=== PATIENT | female | born 1980 | race Caucasian/White ===

== ENCOUNTER 2020-06-18 07:12 | Outpatient (REF) | payer OTHER, SELFPAY | END 2020-06-18 07:13 | disposition home or self-care (01) | LOC: HO.LAB 07:12 | PROVIDERS: PCP Internal Medicine; Visit Provider Internal Medicine | DX: Z20.828 Contact with and (suspected) exposure to other viral communicable diseases (principal) | CPT/HCPCS: 87635 ==

== ENCOUNTER 2020-11-16 11:32 | Outpatient (REF) | payer OTHER, SELFPAY | END 2020-11-16 11:33 | disposition home or self-care (01) | LOC: HO.LAB 11:32 | PROVIDERS: Visit Provider Internal Medicine | DX: Z20.822 Contact with and (suspected) exposure to COVID-19 (principal) | CPT/HCPCS: 36415; C9803; U0003; U0005 ==

== ENCOUNTER 2022-07-29 14:02 | Emergency (ER) | payer OTHER, SELFPAY ==
[2022-07-29 18:23] VITALS: BP 138/97; PULSE 94; RESP 18; TEMP 37.3; O2SAT 97; BMI 26.9
--- NOTE | 2022-07-29 18:23 | ED_ITS ---
HPI - General Adult General Chief complaint: Upper Respiratory Symptoms <Perla Mark MD - Last Filed: 07/29/22 18:32> Stated complaint: sob <Perla Mark MD - Last Filed: 07/29/22 18:32> Time Seen by Provider: 07/29/22 20:13 <Perla Mark MD - Last Filed: 07/29/22 18:32> Source: patient <PATIENCE Reid - Last Filed: 07/29/22 20:36> Mode of arrival: ambulatory <PATIENCE Reid - Last Filed: 07/29/22 20:36> Limitations: no limitations <PATIENCE Reid Last Filed: 07/29/22 20:36> History of Present Illness HPI narrative: 41-year-old female past pertinent medical history of asthma presents to the emergency department for a 5 day history of chills, fever, and fatigue. Associated symptoms include nausea, diarrhea, sore throat, cough, malaise and vague shortness of breath. Shortness of breath is worse with exertion, better w ith rest tells me it fells like when she has asthma improved by inhaler. Patient describes the cough as dry with no accompanied wheezing. Patient is an asthmatic however says that her asthma has been well controlled throughout this illness. Symptoms originally started on Thursday night, patient originally felt this was a hangover from giving on . Symptoms worsened on Thursday. Patient has taken Tylenol, Marylou-Mcandrews at home, with slight relief of symptoms. Took the COVID home test on Thursday, which was negative. Denies chest pain, wheezing, vomiting, headache, weakness, imbalance, vision changes. Boyfriend influenza + <PATIENCE Reid - Last Filed: 07/29/22 20:36> Related Data Home medications: Home Medications Medication Instructions Recorded Confirmed albuterol sulfate 90 mcg/actuation 2 puff inhalation Q4H PRN wheezing 07/28/22 aerosol inhaler cetirizine 10 mg tablet 10 mg PO DAILY 07/28/22 escitalopram oxalate 10 mg tablet 10 mg PO DAILY 07/28/22 meloxicam 7.5 mg tablet 7.5 mg PO DAILY PRN pain 07/28/22 omeprazole 40 mg capsule,delayed 40 mg PO DAILY 07/28/22 release Previous Rx's Medication Instructions Recorded loperamide 2 mg capsule 2 mg PO QID PRN loose stool #14 07/29/22 caps ondansetron 4 mg disintegrating 4 mg PO Q6H PRN nausea and 07/29/22 tablet vomiting #14 tabs prednisone 20 mg tablet 20 mg PO DAILY 5 days #5 tabs 07/29/22 <Perla Mark MD - Last Filed: 07/29/22 18:32> Allergies/adverse reactions: Allergies Allergy/AdvReac Type Severity Reaction Status Date / Time No Known Allergies Allergy Verified 07/29/22 18:22 <Perla Mark MD - Last Filed: 07/29/22 18:32> Review of Systems Review of Systems: Constitutional : No Weight loss, + Fever, + Chills, + Fatigue, + Malaise ENT/Mouth : + sore throat, + Rhinorrhea, - otalgia Eyes: No Eye Pain, No Swelling, No Redness Cardiovascular : No Chest Pain, + SOB, No Dyspnea on Exertion, No Orthopnea, No Edema, No Palpitations Respiratory : No Cough, No Sputum, No Wheezing Gastrointestinal : + Nausea, No Vomiting, +Diarrhea, No Constipation, No abdominal Pain, No Hematochezia, No Melena Genitourinary : No Dysuria, No Urinary Frequency, No Hematuria, Musculoskeletal : No joint pain, No Myalgias, No Joint Swelling Skin : No Skin Lesions, No rash Neuro : No Weakness, No Numbness, No Dizziness, No Headache Psych : No Anxiety/Panic, No Depression All other systems reviewed and are negative <PATIENCE Reid - Last Filed: 07/29/22 20:36> Yes all other systems are reviewed and are negative <PATIENCE Reid - Last Filed: 07/29/22 20:36> [facility] Past Medical History Attestation statement: The following information was validated with the patient. <PATIENCE Reid - Last Filed: 07/29/22 20:36> Source: old records reviewed and nursing notes reviewed <PATIENCE Reid Last Filed: 07/29/22 20:36> Medical History: Medical History (Updated 07/29/22 @ 20:14 by PATIENCE Reid) LARRY positive Anxiety Asthma Fatigue GERD (gastroesophageal reflux disease) Hypertension Insomnia Polyarthralgia <Perla Mark MD - Last Filed: 07/29/22 18:32> Surgical History: Surgical History (Updated 07/28/22 @ 11:05 by ARCADIO Leon) Hx laparoscopic cholecystectomy S/P breast augmentation <Perla Mark MD - Last Filed: 07/29/22 18:32> Family History Family History: Family History (Updated 05/06/22 @ 11:23 by ARCADIO Leon) Father Hypertension Hyperlipidemia Maternal Grandmother Diabetes Cataract Glaucoma Melanoma Paternal Grandmother Myocardial infarction Family/Other Rheumatoid arthritis Brother Diabetes Glaucoma Mother Fibromyalgia <Perla Mark MD - Last Filed: 07/29/22 18:32> Social History Social History: Social History (Updated 05/06/22 @ 11:19 by ARCADIO Leon) Alcohol intake: current Alcohol intake frequency: holidays/special occasions only Patient Tobacco Use Status: Never used Tobacco Advance Directives: No <Perla Mark MD - Last Filed: 07/29/22 18:32> Physical Exam ED Vital Signs: Vital Signs - 24 hr 07/29/22 18:23 Temperature 99.1 F Pulse Rate 94 Respiratory Rate 18 Blood Pressure 138/97 H Pulse Oximetry 97 Oxygen Delivery Method Room Air BMI result Body Mass Index 26.9 <Perla Mark MD - Last Filed: 07/29/22 18:32> Vital Signs - 24 hr 07/29/22 18:23 Temperature 99.1 F Pulse Rate 94 Respiratory Rate 18 Blood Pressure 138/97 H Pulse Oximetry 97 Oxygen Delivery Method Room Air BMI result Body Mass Index 26.9 vss <PATIENCE Reid - Last Filed: 07/29/22 20:36> Appearance: Alert.? Oriented X3.? No acute distress.? Head: Normocephalic, atraumatic, no step-offs or deformities Eyes: Pupils equal, round and reactive to light.? Neck: Normal inspection.? Neck supple.? CVS: Normal heart rate and rhythm.? Pulses normal.? Respiratory: No respiratory distress.? Breath sounds normal.? Abdomen: Soft and nontender.? Skin: Skin warm and dry.? Normal skin color.? Normal skin turgor.? Extremities: No lower extremity edema.? No calf ttp. 5/5 strength to bilateral upper and lower extremities. Homans sign negative bilaterally. Back: No midline tenderness, no C-spine tenderness, full range of motion, no CVA tenderness bilaterally Neuro: Oriented X 3.? No motor deficit.? No sensory deficit. CN 2-12 intact <PATIENCE Reid - Last Filed: 07/29/22 20:36> Course Course Course Narrative: 41F worsening SOB since Thursday, associated with fever, chills, nausea, diarrhea, no urinary symptoms. LMP: end of May. VITAL SIGNS: Reviewed. GENERAL: Well developed, well nourished, in no acute distress. HEAD: Normocephalic/atraumatic EYES: PERRLA, EOMI EARS: Ext canals without abnormality, TMs non-bulging and non-erythematous NOSE: Nares patent bilateral OROPHARYNX: no oral lesions noted, posterior pharynx clear and non-erythematous without noted tonsillar enlargement/erythema/exudates NECK: Supple, no adenopathy LUNGS: Normal breath sounds. No adventitious sounds or accessory muscle use. SpO2<97> CARDIOVASCULAR: Regular rate and rhythm without noted murmurs ABDOMEN: Soft, non-tender, non-distended with bowel sounds. MUSCULOSKELETAL: No tenderness, deformities, or effusions noted on gross inspection. EXTREMITIES: No cyanosis, clubbing or edema. SKIN: Inspection of the skin reveals no rashes NEUROLOGIC: Alert and oriented x 4. Strength and sensation to light touch were grossly intact x 4. <Perla Mark MD - Last Filed: 07/29/22 18:32> Reevaluation(s) Reevaluation #1: influenza +, discusseed supportive measure. Will dc on low dose pred, loperamide and zofran for sx. Not a tamiflu candidate sx > 48 hours. educated on worisome signs and sx and when to return. Verbalizes understanding stable for dc. At time of DC VSS 97% on RA sp ambulation. Non toxic appearing, <PATIENCE Reid - Last Filed: 07/29/22 20:36> Time: 20:36 <PATIENCE Reid - Last Filed: 07/29/22 20:36> Medications Administered Discontinued Medications Generic Name Dose Route Start Last Admin Trade Name Freq PRN Reason Stop Dose Admin Albuterol Sulfate 2 puff 07/29/22 18:29 07/29/22 18:33 Albuterol Sulfate 90 Mcg 8 Gm Inhaler INHALE 07/29/22 18:30 2 puff ONCE ONE Administration Prednisone 50 mg 07/29/22 18:25 07/29/22 18:33 Prednisone 10 Mg Tablet PO 07/29/22 18:26 50 mg ONCE ONE Administration <Perla Mark MD - Last Filed: 07/29/22 18:32> Medications Administered Discontinued Medications Generic Name Dose Route Start Last Admin Trade Name Freq PRN Reason Stop Dose Admin Albuterol Sulfate 2 puff 07/29/22 18:29 07/29/22 18:33 Albuterol Sulfate 90 Mcg 8 Gm Inhaler INHALE 07/29/22 18:30 2 puff ONCE ONE Administration Prednisone 50 mg 07/29/22 18:25 07/29/22 18:33 Prednisone 10 Mg Tablet PO 07/29/22 18:26 50 mg ONCE ONE Administration <PATIENCE Reid - Last Filed: 07/29/22 20:36> Medical Decision Making [facility] Narrative Medical decision making narrative: 2023 41-year-old female past medical history for asthma presents today with 5 day history of flu like sx. Boyfrend flu + PE unremarkable. Carlito's sign negative bilaterally. Lungs to clear to a uscultation bilaterally. Likely flu vs. COVID vs. RSV. Unlikely PE , PNA, peritonsillar abscess, epiglottitis. Clinical suspicion is low for PE with negative Carlito's sign bilaterally, no need for D-dimer. Suspicion for PNA is low, lungs clear bilaterally, no need for CXR at this time. Plan at this time is swabs RSV/flu/COVID swabs. <PATIENCE Reid - Last Filed: 07/29/22 20:36> Medical Records Medical records reviewed: Yes I reviewed the patient's medical records. <PATIENCE Reid - Last Filed: 07/29/22 20:36> Lab Data Lab results reviewed: Yes I reviewed the patient's lab results. <PATIENCE Reid Last Filed: 07/29/22 20:36> Labs: Lab Results 07/29/22 Range/Units 18:35 Influenza Type A (PCR) POSITIVE A (Negative) Influenza Type B (PCR) NEGATIVE (Negative) RSV RNA Qual (PCR) NEGATIVE (Negative) SARS-CoV-2 RNA (RT-PCR) NEGATIVE (Negative) <Perla Mark MD - Last Filed: 07/29/22 18:32> Lab Results 07/29/22 Range/Units 18:35 Influenza Type A (PCR) POSITIVE A (Negative) Influenza Type B (PCR) NEGATIVE (Negative) RSV RNA Qual (PCR) NEGATIVE (Negative) SARS-CoV-2 RNA (RT-PCR) NEGATIVE (Negative) <PATIENCE Reid - Last Filed: 07/29/22 20:36> Critical Care Time Critical Care Time Critical Care Time: No <PATIENCE Reid - Last Filed: 07/29/22 20:36> Discharge Plan Discharge Clinical Impression: Influenza <Perla Mark MD - Last Filed: 07/29/22 18:32> Patient Disposition: Home, Self-Care <Perla Mark MD - Last Filed: 07/29/22 18:32> Instructions: Influenza (ED) <Perla Mark MD - Last Filed: 07/29/22 18:32> Additional Instructions: Take your medications as prescribed. If you were prescribed antibiotics today, it is important that you take your medication to their entirety, do not skip any doses, do not finish them early. Follow-up with your primary care provider this week. Return to the emergency department with new or worsening symptoms such as fevers, chills, chest pain, shortness of breath, headache, vision changes, dizziness, weakness, or new symptoms In case of emergency call 911 practice good hygiene you are contagious <Perla Mark MD - Last Filed: 07/29/22 18:32> Prescriptions: New loperamide 2 mg capsule 2 mg PO QID PRN (Reason: loose stool) Qty: 14 0RF ondansetron 4 mg tablet,disintegrating 4 mg PO Q6H PRN (Reason: nausea and vomiting) Qty: 14 0RF prednisone 20 mg tablet 20 mg PO DAILY 5 Days Qty: 5 0RF No Action albuterol sulfate 90 mcg/actuation HFA aerosol inhaler 2 puff inhalation Q4H PRN (Reason: wheezing) escitalopram oxalate 10 mg tablet 10 mg PO DAILY meloxicam 7.5 mg tablet 7.5 mg PO DAILY PRN (Reason: pain) omeprazole 40 mg capsule,delayed release(DR/EC) 40 mg PO DAILY cetirizine 10 mg tablet 10 mg PO DAILY <Perla Mark MD - Last Filed: 07/29/22 18:32> Referrals: Physician,Unknown J [Primary Care Provider] - 2 days <Perla Mark MD - Last Filed: 07/29/22 18:32> Stand Alone Forms: Work/School Release <Perla Mark MD - Last Filed: 07/29/22 18:32>
[2022-07-29] MEDS: Albuterol Sulfate 90 MCG 8 GM INHALER 2 PUFF INHALE (18:33)
[2022-07-29] MEDS: predniSONE 10 MG TABLET 50 MG PO (18:33)
[2022-07-29 19:22] LABS: Influenza A PCR POSITIVE (Negative); Influenza B PCR NEGATIVE (Negative); Resp Syncy Virus RNA Qual PCR NEGATIVE (Negative); SARS COV2 PCR INHOUSE NEGATIVE (Negative)
== END 2022-07-29 20:33 | disposition home or self-care (01) ==
PROVIDERS: Emergency Provider Student in an Organized Health Care Education/Training Program
DX: J10.1 Influenza due to other identified influenza virus with other respiratory manifestations (principal); Z20.822 Contact with and (suspected) exposure to COVID-19
CPT/HCPCS: 0241U; 99282; 99284

== ENCOUNTER 2022-09-25 09:11 | Outpatient (REF) | payer OTHER, SELFPAY ==
[2022-09-25 10:26] LABS: MANUAL DIFF FLAG NO
[2022-09-25 10:58] LABS: Basophils Absolute Auto 0.1 X10*3/uL (0.0-0.2); Basophils Percent Auto 0.7 % (0-2); Eosinophils Absolute Auto 0.6 X10*3/uL (0.0-0.4); Eosinophils Percent Auto 6.7 % (0-4); Hematocrit 40.8 % (37.0-47.0); Hemoglobin 12.8 g/dl (12.0-16.0); Imm Gran Abs Auto 0.04 X10*3/uL (0.00-0.03); Imm Gran Pct Auto 0.4 % (0.0-0.4); Lymphocytes Absolute Auto 2.6 X10*3/uL (1.2-4.9); Lymphocytes Percent Auto 28.2 % (20-40); Mean Corpuscular HGB Conc 31.4 g/dl (31.0-35.0); Mean Corpuscular Hemoglobin 27.1 pg (27.0-33.0); Mean Corpuscular Volume 86.4 fL (80.0-98.0); Mean Platelet Volume 9.9 fL (9.4-12.3); Monocytes Absolute Auto 0.8 X10*3/uL (0.1-1.2); Monocytes Percent Auto 8.5 % (2-11); Neutrophils Absolute Auto 5.1 x10*3/uL (2.0-8.3); Neutrophils Percent Auto 55.5 % (45-73); Platelet Count 476 X10*3/uL (160-400); Red Blood Count 4.72 X10*6/uL (4.20-5.50); Red Cell Distribution Width 13.9 % (11.0-16.0); White Blood Count 9.2 X10*3/uL (4.8-10.8)
[2022-09-25 11:37] LABS: Erythrocyte Sedimentation Rate 10 MM/HR (0-20)
[2022-09-25 11:50] LABS: Appearance Urine Clear; Color Urine Yellow; Glucose Urine UA Negative (Negative); Leukocyte Esterase Urine Negative (Negative); Nitrite Urine Negative (Negative); PH 8.5 (5.0-9.0); Urine Blood Negative (Negative); Urine Ketones Negative (Negative); Urine Protein Negative (Neg-Trace)
[2022-09-25 11:51] LABS: Alanine Aminotransferase 14 U/L (0-31); Alkaline Phosphatase 88 U/L (39-117); Anion Gap 12 (12-20); Aspartate Amino Transferase 16 U/L (5-31); Bilirubin Total 0.4 mg/dL (0.0-1.0); Blood Urea Nitrogen 12 mg/dL (9-16); C Reactive Protein 0.41 mg/dL (< or = 0.50); Calcium 9.3 mg/dL (8.4-10.2); Carbon Dioxide 26 mmol/L (22-29); Chloride 105 mmol/L (96-108); Estimated Glomerular Filt Rate > 60; Glucose Random 83 mg/dL (60-115); Potassium 4.4 mmol/L (3.3-5.1); Rheumatoid Factor < 13.0 IU/mL (<15.0); Sodium 139 mmol/L (135-145); Total Protein 7.7 g/dL (6.5-8.0)
[2022-09-25 11:54] LABS: Bacteria Urine None Seen (None Seen); Hyaline Casts Urine 0-2 /LPF (0-2); RBC Urine 0-2 /HPF (0-2); Squamous Epithelial Cell Urine 0-2 /HPF (0-2); WBC Urine 0-5 /HPF (0-5)
[2022-09-25 11:58] LABS: TSH reflex Free T4 0.48 uIU/mL (0.32-4.0)
[2022-09-25 12:49] LABS: Creatinine Urine 96.36 mg/dL; Total Protein Urine Random < 7 mg/dL (<12)
[2022-09-26 06:35] LABS: HBc Num1 0.11 S/CO (0.00-0.79); HBsAGNum1 0.37 S/CO (0.00-0.99); Hepatitis B Core Antibody Nonreactive (Nonreactive); Hepatitis B Surface Antigen Negative (Negative); ~HepC Num1 0.14 S/CO (0.00-0.79); ~Hepatitis A Antibody IgM Nonreactive (Nonreactive); ~Hepatitis B Surface Antibody REACTIVE (Nonreactive); ~Hepatitis C Antibody Nonreactive (Nonreactive)
[2022-09-26 15:13] LABS: Complement C3 146 mg/dL (83-193)
[2022-09-27 15:13] LABS: TS Negative Control Passed; TS Panel A 0; TS Panel B 1; TS Positive Control Passed; TSpotTB Negative (Negative)
[2022-09-29 11:04] LABS: Thyroglobulin Antibodies <1 IU/mL (< or = 1); Thyroid Peroxidase Antibodies 2 IU/mL (<9)
[2022-09-29 13:43] LABS: Cardiolipin IgG Ab <2.0 GPL-U/mL; Cardiolipin IgM Ab <2.0 MPL-U/mL
[2022-09-29 14:09] LABS: DNAds, Crithidia Antibody Negative (Negative)
[2022-09-29 15:03] LABS: Anti Nuclear Antibody Pattern Nuclear Envelope; Anti Nuclear Antibody Screen POSITIVE (NEGATIVE); Anti Nuclear Antibody Titer 1:40 titer
[2022-09-29 17:23] LABS: Cyclic Citrullinated Peptide <16 UNITS
[2022-09-29 21:04] LABS: Anti DNA DS Antibody 1 IU/mL; Antibody to SS-A Antigen <1.0 NEG AI (<1.0 NEG); Antibody to SS-B Antigen <1.0 NEG AI (<1.0 NEG); SM/Ribonucleoprotein Ab <1.0 NEG AI (<1.0 NEG); Smith Protein <1.0 NEG AI (<1.0 NEG)
[2022-09-30 12:34] LABS: PTT (LAC) Screen 32 sec (<=40)
[2022-10-01 12:48] LABS: Beta-2 Glycoprotein IgA <2.0 U/mL (<20.0); Beta-2 Glycoprotein IgG <2.0 U/mL (<20.0); Beta-2 Glycoprotein IgM <2.0 U/mL (<20.0)
[2022-10-05 01:35] LABS: Cytosolic 5'nuc 1A Ab IgG 5 Units; Ej Ab <11 SI (<11); HMGCR Ab IgG <2 CU (<20); Jo-1 Ab <11 SI (<11); MDA5 Ab <11 SI (<11); Mi-2 alpha Ab <11 SI (<11); Mi-2 beta Ab <11 SI (<11); NXP-2 (MJ) Ab <11 SI (<11); Oj Ab <11 SI (<11); Pl-12 Ab <11 SI (<11); Pl-7 Ab <11 SI (<11); SRP Ab <11 SI (<11); TIF1 gamma Ab <11 SI (<11)
[2022-10-07 15:49] LABS: Centromere Protein A Ab <11 SI (<11); Centromere Protein B Ab <11 SI (<11); Fibrillarin Ab <11 SI (<11); PM SCL 100 Ab <11 SI (<11); PM SCL 75 Ab <11 SI (<11); RNA Polymerase III RP11 Ab <11 SI (<11); RNA Polymerase III RP155 Ab <11 SI (<11); SCL-70 Extractable Nuclear Ab <11 SI (<11); Th-To Ab <11 SI (<11); U1 SNRNP RNP 70KD <11 SI (<11); U1 SNRNP RNP A <11 SI (<11); U1 SNRNP RNP C <11 SI (<11)
== END 2022-09-25 09:12 | disposition home or self-care (01) ==
LOC: HO.LAB 09:11
PROVIDERS: Visit Provider Student in an Organized Health Care Education/Training Program
DX: Z11.59 Encounter for screening for other viral diseases (principal); Z11.7 Encounter for testing for latent tuberculosis infection; D68.61 Antiphospholipid syndrome; M34.9 Systemic sclerosis, unspecified; E07.9 Disorder of thyroid, unspecified; M32.9 Systemic lupus erythematosus, unspecified; M06.9 Rheumatoid arthritis, unspecified; G72.9 Myopathy, unspecified; R76.8 Other specified abnormal immunological findings in serum
CPT/HCPCS: 36415; 80053; 81001; 83516; 83520; 84156; 84182; 84443; 85025; 85597; 85613; 85652; 85730; 86038; 86039; 86140; 86146; 86147; 86160; 86200; 86225; 86235; 86255; 86376; 86431; 86481; 86704; 86706; 86709; 86800; 86803; 87340

== ENCOUNTER 2025-07-31 21:29 | Emergency (ER) | payer SELFPAY ==
[2025-07-31] VITALS (8 sets, daily range): BP systolic 132–150; BP diastolic 87–108; PULSE 89–118; RESP 16–22; TEMP 36.6; O2SAT 89–100; BMI 30.5
--- NOTE | ~2025-07-31 | XR_ITS ---
CLINICAL HISTORY: cough 1 view chest x-ray Comparison: None provided Findings: No consolidation or effusion. Heart size is normal. No acute fracture. IMPRESSION: 1. No acute findings. This document has been electronically signed by: Sherif Lora MD on 07/31/2025 22:32:03
[2025-07-31] MEDS: Magnesium Sulfate/H2O 2 GM/50 ML PIGGYBACK IV (21:56)
[2025-07-31 22:14] LABS: Hematocrit 39.3 % (37.0-47.0); Hemoglobin 12.7 g/dl (12.0-16.0); Imm Gran Abs Auto 0.04 X10*3/uL (0.00-0.03); Imm Gran Pct Auto 0.3 % (0.0-0.4); Lymphocytes Absolute Auto 0.6 X10*3/uL (1.2-4.9); MANUAL DIFF FLAG SCAN; Mean Corpuscular HGB Conc 32.3 g/dl (31.0-35.0); Mean Corpuscular Hemoglobin 25.6 pg (27.0-33.0); Mean Corpuscular Volume 79.2 fL (80.0-98.0); NRBC Abs Auto 0.000 X10*3/uL (0.0-0.012); NRBC Pct Auto 0.0 /100WBC (0.0-0.2); Platelet Count 372 X10*3/uL (160-400); Red Blood Count 4.96 X10*6/uL (4.20-5.50); SCAN SMEAR FLAG 1; White Blood Count 12.1 X10*3/uL (4.8-10.8)
[2025-07-31 22:25] LABS: Anion Gap 9 (12-20); Blood Urea Nitrogen 8 mg/dL (9-16); Calcium 8.5 mg/dL (8.4-10.2); Carbon Dioxide 26 mmol/L (22-29); Chloride 108 mmol/L (96-108); Creatinine Clr Calc Pharmacy 103.5; Estimated Glomerular Filt Rate > 60; Magnesium 1.8 mg/dL (1.6-2.6); Potassium 3.4 mmol/L (3.3-5.1); Sodium 140 mmol/L (135-145)
--- OUTSIDE RECORDS SUMMARY | 2025-07-31 22:27 | XMS_ITS | Encounter Summary ---
Author Organization [facility] Address [address] [address] Phone Care Team Providers Care Bell Valet Name Role Phone Pcp, Unknown Primary Care Provider Unavailabl e Encounter Details Date Type Department Care Team (Late st Contact Info) Description 09/18/2023 Procedure Pass OR Admitting Dept - Virtual Department [address] [place] [address] Social History Tobacco Use Types Packs/Day Years Used Date Smoking Tobacco: Never Smokeless Tobacco: Never Alcohol Use Standard Drinks/Week Comments Yes 3 (1 standard drink = 0.6 oz pur e alcohol) socially Education Answer Date Recorded Are you interested in more education? Not on ariana e 12/27/2022 Are you concerned about learning? Not on file 12/27/2022 No 12/27/2022 No 12/27/2022 Digital Access Answer Date Recorded No 01/25/2023 No 01/25/2023 Reliable internet access at home? Not on file 01/25/2023 Device with a working camera? Not on file Intimate Partner Violence Answer Date R ecorded Are you denied basic needs s uch as food, clothing, or medical care? No 09/18/2023 In the past 12 months have y ou been in a relationship with a person who hurts, threatens, or tries to control you? No 09/18/2023 Are you denied basic needs s uch as food, clothing, or medical care? No 09/18/2023 In the past 12 months have y ou been in a relationship with a person who hurts, threatens, or tries to control you? No 09/18/2023 Comments No Sex and Gender Information Value Date Recorded Sex Assigned at Not on file Legal Sex Female 10:28 AM EDT Gender Identity Not on file Sexual Orientation Not on file documented as of this encounter Plan of Treatment Not on file documented as of this encounter Visit Diagnoses Not on filedocumented in this encounter Care Teams Bell Valet Relationship Specialty Start Date End Date Pcp, Unknown PCP - General 11/17/22 documented as of this encounter Additional Source Comments The information contained in this document represents components of the legal health record. It is not the complete legal health record.[facility]
--- OUTSIDE RECORDS SUMMARY | 2025-07-31 22:28 | XMS_ITS | Clinical Summary ---
Author Organization [facility] Address [address] [address] Phone Care Team Providers Care Whipper Name Role Phone Pcp, Unknown Primary Care Provider Unavailabl e Allergies No known active allergies Medications omeprazole (PRILOSEC) 40 MG capsule 07/08/2023 Active amLODIPine (NORVASC) 10 MG tablet 07/14/2023 Active albuterol 90 mcg/actuation inhaler 07/06/2023 Active cetirizine (ZYRTEC) 10 MG tablet Take 1 tablet by mouth every morning. 06/04/2023 Active cyanocobalamin, vitamin B-12, 1000 MCG tablet Take 1 tablet by mouth every morning. 06/04/2023 Active fluticasone propionate 110 mcg/actuation inhaler Inhale 1 puff into the lungs 2 (two) times a day. 06/10/2023 Active escitalopram oxalate (LEXAPRO) 10 MG tablet Take 10 mg by mouth daily. Active oxyCODONE 5 MG immediate release tablet Take 1 tablet (5 mg total) by mouth every 4 (four) hours as needed. Partial fill ok 10 tablet 09/18/2023 Active Active Problems Problem Noted Date Diagnosed Date GERD (gastroesophageal reflux disease) Hypertension 09/18/2023 Asthma 09/18/2023 Unwanted fertility 09/18/2023 Family History Medical History Relation Comments Pancreatic cancer Maternal Grandfather Relation Status Comments Father Alive Maternal Grandfather Maternal Grandmother Alive Mother Alive Social History Tobacco Use Types Packs/Day Years [...] on file Sexual Orientation Not on file Last Filed Vital Signs Vital Sign Reading Time Taken Comments Blood Pressure 132/93 09/18/2023 11:16 AM EST Pulse 89 09/18/2023 9:45 AM EST Temperature 36.5 C (97.7 F) 09/18/2023 9:00 AM EST Respiratory Rate 16 09/18/2023 9:45 AM EST Oxygen Saturation 97% 09/18/2023 11:16 AM EST Inhaled Oxygen Concentration - - Weight 77.1 kg (170 lb) 09/18/2023 6:51 AM EST Height 160 cm (5' 3 ) 09/18/2023 6:51 AM EST Body Mass Index 30.11 09/18/2023 6:51 AM EST Plan of Treatment Health Maintenance Due Date Last Done Comments DEPRESSION SCREENING 1994 HEPATITIS C SCREENING 2000 HIV ONE-TIME SCREENING (18-65 YEARS) 2000 PNEUMOCOCCAL VACCINES (0-49 years) (2 of 2 - PCV) 03/20/2015 03/20/2014 SCREENING FOR DIABETES 2017 MAMMOGRAM 2022 Adult Td,Tdap Booster 09/23/2023 09/23/2013, 003 BLOOD PRESSURE 03/16/2024 09/16/2023 INFLUENZA VACCINE (#1) 2025 , 08/19/2022, 07/29/2021, Additional history exists COVID-19 VACCINE ( season) 2025 10/04/2020, 09/06/2020 PAP SMEAR 07/21/2026 07/21/2023 SMOKING STATUS SCREENING (Once After 26 Yrs) Completed 09/18/2023 HEPATITIS A VACCINES Aged Out No long er eligible based on patient's age to complete this topic HIB VACCINES Aged Out No longer eligi ble based on patient's age to complete this topic MENINGOCOCCAL VACCINES (ACWY) Aged Out No longer eligible based on patient's age to complete this topic MENINGOCOCCAL VACCINES (B) Aged Out N o longer eligible based on patient's age to complete this topic Medical Devices Implanted Type Area Sterile Instrument Technician Device Identifier Shelf Expiration Date Model / Serial / Lot Breast Breast Procedures Procedure Name Priority Date/Time Associated Diagnosis Comments PAP TEST Routine 07/21/2023 12:00 AM EST from Last 3 Months or Most Recently Relevant to Health Maintenance Results * Pap Test (07/21/2023 12:00 AM EST) 07/21/2023 07/22/2023 9:1 5 AM EST Narrative SEE NARRATIVE - 07/29/2023 8:56 [place] [address] Tattooer: Andra Garland MD OPERATIONS SUPPORT REPRESENTATIVE Cytology Report FINAL DIAGNOSIS A. PAP SMEAR (SUREPATH) CE: SPECIMEN ADEQUACY: Satisfactory for evaluation; transformation zone present. INTERPRETATION: NEGATIVE FOR INTRAEPITHELIAL LESION OR MALIGNANCY. Electronically Signed Out By: AGUSTIN Barrios(ASCP) The Pap test is a screening test primarily for squamous cancers and precursors and has associated false-negative and false-positive results. New technologies such as liquid-based preparations may decrease but will not eliminate all false-negative results. Regular sampling and follow-up of unexplained clinical signs and symptoms are recommended to minimize false negative results. PROCEDURES/ADDENDA HPV Testing (Requested) Ordered Date: 07/22/2023 A. PAP SMEAR (SUREPATH) CE: Human Papilloma Virus Test NEGATIVE for high-risk Human Papilloma Virus types 16, 18, 45 and the Other high risk probe set (Includes 31, 33, 35, 39, 51, 52, 56, 58, 59, 66, 68) Note: Testing performed by [employer] On[employer]arity HR-HPV analysis. Clinical correlation is advised. This HPV test was performed at [facility], [address] [place] [address]. This test has been FDA approved for SurePath cervical cytology specimens. The accuracy and precision of this test for all other specimen sources has been verified in the Cytopathology Laboratory of the [facility] and has not been cleared or approved by the U.S. Food and Drug Administration. Clinical correlation is advised. CLINICAL HISTORY Date of Last Menstrual Period: Not Provided Menstrual History: Unknown Contraceptive History: BCPs Other Clinical Conditions: Screening Pap SPECIMEN SOURCE A: PAP SMEAR (SUREPATH) CE Patient Name: ROMMEL YOO : 1980 (Age: 42) Sex: F Institution: [facility] Location: [facility] Date of Collection: 07/21/2023 Date of Reported: 07/29/2023 08:56 Results to: Amy Beauchamp CNM Amy Beauchamp CNM CYTOLOGY ORDERABLES Carolina aurelia Result SEE NARRATIVE from Last 3 Months or Most Recently Relevant to Health Maintenance Insurance [facility] PUBLIC PLANS [facility] [employer] DIRECT [employer] DIRECT [employer] [place] [address] [place] [address] [employer] DIRECT Advance Directives For more information, please contact: [phone] (9AM - 5PM [facility], Thursday-Thursday) * Full Code (Latest Code Status on File) Date Activated Date Inactivated Comments 09/18/2023 6:48 AM Question Answer Comments Code Status Confirmed With: Patient Care Teams Whipper Relationship Specialty Start Date End Date Pcp, Unknown PCP - General 11/17/22 Additional Source Comments The information contained in this document represents components of the legal health record. It is not the complete legal health record.[facility]
--- OUTSIDE RECORDS SUMMARY | 2025-07-31 22:28 | XMS_ITS | Clinical Summary ---
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 - Oral Active hydrOXYzine HCL (ATARAX) 10 mg tablet Take 1 tablet (10 mg total) by mouth 2 (two) times a day if needed for itching. 180 tablet 5 Active fluticasone HFA (FLOVENT HFA) 110 mcg/actuation inhaler Inhale 1 puff by mouth 2 (two) times a day. Rinse mouth with water after use to reduce aftertaste and incidence of candidiasis. Do not swallow. 1 each 2 5 Active ondansetron (ZOFRAN) 4 mg tablet Take 1 tablet (4 mg total) by mouth every 8 (eight) hours if needed for nausea. 30 tablet 5 Active meclizine (ANTIVERT) 25 mg tablet Take 1 tablet (25 mg total) by mouth 3 (three) times a day if needed for dizziness. 60 tablet 5 Active EPINEPHrine (EPIPEN) 0.3 mg/0.3 mL injection Inject 0.3 mL (0.3 mg total) into the thigh if needed for anaphylaxis. Call 911 after use. 1 each 1 5 04/21/20 Active cyanocobalamin (VITAMIN B-12) 1,000 mcg tablet Take 1 tablet (1,000 mcg total) by mouth 1 (one) time each day. 90 tablet 3 5 Active escitalopram (LEXAPRO) 20 mg tablet Take 1 tablet (20 mg total) by mouth 1 (one) time each day. Take 1 Tablet by mouth daily. - Oral 90 tablet 1 5 Active omeprazole (PriLOSEC) [address] capsule Take 1 capsule (40 mg total) by mouth 1 (one) time each day. 90 capsule 1 5 Active losartan (COZAAR) 25 mg tablet TAKE 1 TABLET BY MOUTH EVERY DAY 90 tablet 1 5 Active budesonide (PULMICORT) 90 mcg/actuation inhaler Inhale 1 puff by mouth 2 (two) times a day. Rinse mouth with water after use to reduce aftertaste and incidence of candidiasis. Do not swallow. 1 each 3 5 06/28/20 Active albuterol HFA (PROAIR HFA ; PROVENTIL HFA ; VENTOLIN HFA) 90 mcg/actuation inhalerIndication s:Mild intermittent asthma without complication Inhale 2 puffs by mouth every 4 (four) hours if needed for wheezing. 6.7 g 2 5 Active Active Problems Problem Noted Date Diagnosed Date Fatigue 12/30/2021 Gastroesophageal reflux disease without esophagi tis 12/30/2021 Polyarthritis 12/30/2021 LARRY positive 09/17/2017 Swelling 06/20/2017 Overview (06/07/2024): As per visit 06/19/17 - Mainly of fingers and toes x 1 month without discoloration Essential hypertension 05/26/2017 Arthritis 08/04/2014 Gallstone pancreatitis 08/04/2014 Insomnia 08/04/2014 Anxiety and depression 09/22/2011 Overview (06/07/2024): Patient use PRN lorazepam, and Ambien at bedtime Asthma 09/22/2011 Overview (06/07/2024): Mild asthma and she only uses albuterol during the spring, No hospitalizations and no intubations Encounters Date Type Department Care Team Description 06/28/2025 11:00 AM EDT Office Visit Adult Medicine [address] [id number] Kacey Kirby PA Mild intermittent asthma without complication (Primary Dx); Essential hypertension; Anxiety and depression; Gastroesophageal reflux disease without esophagitis 06/26/2025 Telephone Adult Medicine [address] [id number] Wei Rasmussen MD from Last 3 Months Immunizations Immunization Administration Dates Next Due Hepatitis B (Recombivax HB-Dialysis) 18yo and ol jose a 05/24/2003,04/26/2003 Influenza Quadravalent, MDCK , 0.5ml, preservative free (Flucelvax) 6mo and older 08/19/2022,07/29/2021 Influenza Quadravalent, MDCK , 0.5ml, with preservative (Flucelvax) 6mo and older 05/26/2017 Influenza trivalent, 0.5mL ( Fluzone High-dose) 65yo and older 09/23/2013,05/15/2011 Influenza trivalent, 0.5mL, preservative free (Fluarix; FluLaval; Fluzone) ages 6mo and older (Afluria) 3 years and older 06/05/2015 Influenza trivalent, MDCK, 0 .5mL, preservative free (Flucelvax) 6mo and older 06/28/2025 Influenza trivalent, with pr eservative (Fluzone; Afluria) 6mo and older 06/13/2020,05/19/2019 PPD Test 05/23/2003,04/26/2003 Pneumococcal conjugate 20 va lent (Prevnar 20, PCV 20) 2mo and older 06/28/2025 Pneumococcal polysaccharide 23 valent (Pneumovax 23) 2yo and older 03/20/2014 Td Tetanus diptheria (Tdvax) 7yo and older 04/26,04/26/2003 Td Tetanus diptheria, preser vative free (Tenivac) 7yo and older 12/08/2024 Tdap Tetanus diptheria acell ular pertussis (Boostrix; Adacel) 7yo and older 09/23/2013 Surgical History Surgery Date Site/Laterality Comments OTHER SURGICAL HISTORY PROCEDURE: IMPLANT BREAST SILICONE/EQ OTHER SURGICAL HISTORY PROCEDURE: MD LAPS SURG CHOLECYSTECTOMY W/CHOLANGIOGRAPHY; COMMENT: 05/25/2014 Medical History Medical History Date Comments Gallstone pancreatitis DX:Gallst one pancreatitis Essential hypertension 05/26/2017 DX:Essent ial hypertension Gastroesophageal reflux dise ase without esophagitis 12/30/2021 DX:Gastroesophageal reflux d isease without esophagitis Family History Medical History Relation Name Comments Diabetes Brother 1 Glaucoma Brother 1 Hypertension Father Other: hyperlipidemia Father Cataracts Maternal Grandmother Diabetes Maternal Grandmother Glaucoma Maternal Grandmother Melanoma Maternal Grandmother Rheum arthritis Mother's side Heart attack Paternal Grandmother Blindness Neg Hx Macular degeneration Neg Hx Strabismus Neg Hx Relation Name Status Comments Brother 1 Brother 2 Alive DM Father Alive HTN and high ch oleterol Maternal Grandmother Mother Alive fibromyalgia Mother's side Paternal Grandmother Son 1 Alive Asthma Son 2 Alive Asthma Social History Tobacco Use Types Packs/Day Years Used Date Smoking Tobacco: Never Smokeless Tobacco: Never Tobacco Cessation:Counseling Given: Not Answered Alcohol Use Standard Drinks/Week Comments Yes 0 (1 standard drink = 0.6 oz pur e alcohol) Housing Instability Answer Date Recorde d Are you worried that in the next 2 months you may not have stable housing? No 06/29/2024 Food Access & Nutrition Answer Date Rec orded Do you have access to a vari ety of food including fruits and vegetables? Yes 06/29/2024 Access to Healthcare Answer Date Record ed Within the last 3 months, ho w many times did you visit the emergency department for your medical care? 0 06/29/2024 Health Literacy Answer Date Recorded How often do you need to hav e someone help you when you read instructions, pamphlets, or other written material from your doctor or pharmacy? Never 06/29/2024 Caregiver: How often do you need to have someone help you when you read instructions, pamphlets, or other written material from your doctor or pharmacy? Not on file 06/29/2024 Financial Risk Answer Date Recorded How hard is it for you to pa y for the very basics like food, housing, medical care, and air conditioning / heating? Patient declined 06/29/2024 Transportation Answer Date Recorded Has the lack of transportati on kept you from meetings, work, or from getting things needed for daily living? No Has the lack of transportati on kept you from medical appointments or from getting medications? No 06/29/2024 Social Isolation Answer Date Recorded How often do you feel lonely or isolated from th ose around you? Rarely 06/29/2024 Food Risk Answer Date Recorded Within the past 12 months we worried whether our food would run out before we got money to buy more. Never true 06/29/2024 Within the past 12 months th e food we bought just didn't last and we didn't have money to get more. Never true 06/29/2024 Dependent Care Answer Date Recorded Do you need help finding or paying for care for your loved ones. For example, child support officer or elderly care for an older adult? No 06/29/2024 Education Answer Date Recorded Do you think completing more education or training, like finishing a GED, going to college, or learning a trade, would be helpful for you? N/A 06/29/2024 Employment and Income Answer Date Recor ded During the last four weeks, have you been actively looking for work? No 06/29/2024 Living Situation Answer Date Recorded What is your living situation? Unrecognized valu e 06/29/2024 Comments No Sex and Gender Information Value Date Recorded Sex Assigned at Female 06/29/2024 12:05 PM EDT Legal Sex Female 2:35 PM EST Gender Identity Female 06/29/2024 12:05 PM EDT Sexual Orientation Straight 06/29/2024 12 :05 PM EDT Obstetrics History Last Filed Vital Signs Vital Sign Reading Time Taken Comments Blood Pressure 137/89 06/28/2025 11:02 AM EDT Pulse 83 06/28/2025 11:02 AM EDT Temperature 36.3 C (97.4 F) 06/28/2025 11:02 AM EDT Respiratory Rate 14 06/28/2025 11:02 AM EDT Oxygen Saturation - - Inhaled Oxygen Concentration - - Weight 82.1 kg (181 lb) 06/28/2025 11:02 AM EDT Height 160 cm (5' 3 ) 06/28/2025 11:02 AM EDT Body Mass Index 32.06 06/28/2025 11:02 AM EDT Plan of Treatment Health Maintenance Due Date Last Done Comments Breast Cancer Screening 1982 Hepatitis B Vaccines (3 of 3 - 19+ 3-dose series) 10/27/2003 05/24/2003, 04/26/2003 HPV Vaccines (1 - 3-dose SCDM series) 2009 Cervical Cancer Screening: Pap Smear 08/20/2020 08/20/2017 COVID-19 Vaccine ( season) 2025 10/04/2020, 09/06/2020 Social Influencers of Health Screening 08/02/2025 06/29/2024 Postponed from 06/29/2025 (Patient Refused) Hypertension/CHF/CAD Annual BMP Blood Test 12/08/2025 12/08/2024, 02/01/2024, 02/01/2024 Cholesterol Screening (Lipid Panel) 01/31/2029 02/01/2024, 02/01/2024 DTaP,Tdap,and Td Vaccines (5 - Td or Tdap) 12/08/2034 12/08/2024, 09/23/2013, 04/26/2003, Additional history exists RSV Immunization Adult Patients (1 - 1-dose 75+ series) 2057 HIV Screening Completed 09/01/2014 Hepatitis C Screening Completed 09/01/2014 Depression Screening Completed 02/06/2025, 05/17/20 24 Influenza Vaccine Completed 06/28/2025, , 06/23/2023, Additional history exists Pneumococcal Vaccine: Pediatrics (0 to 5 Years) and At-Risk Patients (6 to 49 Years) Completed 06/28/2025, 03/20/2014 HIB Vaccines Aged Out No longer eligi ble based on patient's age to complete this topic Hepatitis A Vaccines Aged Out No long er eligible based on patient's age to complete this topic IPV Vaccines Aged Out No longer eligi ble based on patient's age to complete this topic MMR Vaccines Aged Out No longer eligi ble based on patient's age to complete this topic Meningococcal ACWY Vaccine Aged Out N o longer eligible based on patient's age to complete this topic Meningococcal B Vaccine Aged Out No l onger eligible based on patient's age to complete this topic RSV Immunization Patients Under 20 months Aged Out No longer eligible based on patient's age to complete this topic Varicella Vaccines Aged Out No longer eligible based on patient's age to complete this topic Procedures Procedure Name Priority Date/Time Associated Diagnosis Comments COMPREHENSIVE METABOLIC PANEL Routine 12/08/2024 11:14 AM EDT Essential hypertension Anxiety and depression Gastroesophageal reflux disease without esophagitis Other fatigue DEPRESSION SCREENING Routine 05/17/2024 LIPID PANEL Routine 02/01/2024 PAP SMEAR Routine 08/20/2017 HEPATITIS C SCREENING Routine 09/01/2014 HIV SCREENING Routine 09/01/2014 from Last 3 Months or Most Recently Relevant to Health Maintenance Results * (ABNORMAL) Comprehensive metabolic panel (12/08/2024 11:14 AM EDT) Sodium 138 133 - 145 mmol/L LAB CHEMISTRY METHOD 12/08/2024 2:38 PM [facility] Potassium 3.9 3.5 - 5.5 mmol/L LAB CHEMISTRY METHOD 12/08/2024 2:38 PM [facility] Chloride 103 96 - 110 mmol/L LAB CHEMISTRY METHOD 12/08/2024 2:38 PM [facility] CO2 28 21 - 32 mmol/L LAB CHEMISTRY METHOD 12/08/2024 2:38 PM [facility] Anion Gap 7 3 - 11 LAB CHEMISTRY METHOD 12/08/2024 2:38 PM [facility] Glucose 75 70 - 100 mg/dL LAB CHEMISTRY METHOD 12/08/2024 2:38 PM [facility] BUN 9 5 - 25 mg/dL LAB CHEMISTRY METHOD 12/08/2024 2:38 PM [facility] Creatinine 0.82 0.50 - 1.10 mg/dL LAB CHEMISTRY METHOD 12/08/2024 2:38 PM [facility] eGFR 92 >=60 mL/min/1. 73m2 LAB CHEMISTRY METHOD 12/08/2024 2:38 PM [facility] Comment:Calculation based on the Chronic Kidney Disease Epidemiology Collaboration (CKD-EPI) equation refit without adjustment for race. BUN/Creatinine Ratio 11.0 LAB CHEMISTRY METHOD 12/08/2024 2:38 PM [facility] Calcium 9.4 8.5 - 10.5 mg/dL LAB CHEMISTRY METHOD 12/08/2024 2:38 PM [facility] AST (SGOT) 14 10 - 42 unit/L LAB CHEMISTRY METHOD 12/08/2024 2:38 PM [facility] ALT (SGPT) 13 10 - 60 unit/L LAB CHEMISTRY METHOD 12/08/2024 2:38 PM [facility] Alkaline Phosphatase 99 42 - 121 unit/L LAB CHEMISTRY METHOD 12/08/2024 2:38 PM [facility] Total Protein 8.1(H) 6.0 - 8.0 g/dL LAB CHEMISTRY METHOD 12/08/2024 2:38 PM [facility] Albumin 3.8 3.2 - 5.0 g/dL LAB CHEMISTRY METHOD 12/08/2024 2:38 PM [facility] Total Bilirubin 0.8 0.0 - 1.4 mg/dL LAB CHEMISTRY METHOD 12/08/2024 2:38 PM [facility] Blood Venous blood specimen / Unknown Venipuncture / Unknown 12/08/2024 11:14 AM EDT 12/08/2024 11:14 AM EDT us Kacey MORIN LAB BLOOD ORDERABLES Fin al Result [facility]) [facility] [address] [place] [address], [place] [phone] * Depression Screening (05/17/2024) Pathologist [facility] Depression Screening Abstracted Result [facility] Historical Provider HEALTH MAINTENANCE Final Result * (ABNORMAL) Lipid panel (02/01/2024) [facility] LDL/HDL Ratio 4 0 - 4 Triglycerides 115 0 - 150 mg/dL Cholesterol 196 0 - 200 mg/dL HDL 56 >=40 mg/dL LDL Cholesterol 117(A) 0 - 100 mg/dL Blood Venous blood specimen / Unknown Result [facility] Provider LAB BLOOD ORDERABLES [place] l Result * Pap Smear (08/20/2017) [facility] Pap smear Negative, Abstracted Result [facility] Historical Provider HEALTH MAINTENANCE Final Result * HIV Screening (09/01/2014) [facility] HIV Screening Abstracted Result [facility] Provider HEALTH MAINTENANCE Final Result * Hepatitis C Screening (09/01/2014) [facility] Hepatitis C Screening Abstracted Result [facility] Provider HEALTH MAINTENANCE Final Result from Last 3 Months or Most Recently Relevant to Health Maintenance Insurance [facility] [employer] Care Teams 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
[2025-07-31] MEDS: Albuterol Sulfate 2.5 MG, Albuterol/Iprat 2.5/0.5MG 3 ML 3 ML INHALE (22:42)
--- NOTE | 2025-07-31 22:46 | ED.GENADULT ---
HPI - General Adult General Chief complaint: Upper Respiratory Symptoms Stated complaint: Difficulty breathing Time Seen by Provider: 07/31/25 21:40 Source: patient Limitations: no limitations History of Present Illness ED Provider: Karen Hirsch PA-C HPI narrative: 44-year-old female with a history of asthma, polyarthralgia who is LARRY positive, anxiety and hypertension who presents with cough and cold symptoms times 1 day. Patient states she developed her symptoms this morning, her wheezing has worsened, she is not responding to home nebulizer treatment. Denies fever or sick contacts with viral symptoms. Patient denies use of tobacco, however uses marijuana. Related Data Home Medications ?Medication ?Instructions ?Recorded ?Confirmed albuterol sulfate 90 mcg/actuation 2 puff inhalation Q4H PRN wheezing 07/28/22 aerosol inhaler cetirizine 10 mg tablet 10 mg PO DAILY PRN 08/05/22 escitalopram oxalate 20 mg tablet 20 mg PO DAILY 05/19/25 (Lexapro) hydroxyzine HCl 10 mg tablet 10 mg PO BEDTIME 05/19/25 omeprazole magnesium 20 mg 20 mg PO DAILY 05/19/25 tablet,delayed release (Prilosec OTC) Previous Rx's ?Medication ?Instructions ?Recorded albuterol sulfate 2.5 mg/3 mL 2.5 mg (3 mL) inhalation Q4-6H PRN 08/01/25 (0.083 %) solution for nebulization shortness of breath or wheezing #75 mL prednisone 20 mg tablet 40 mg (2 x 20 mg) PO DAILY #8 tabs 08/01/25 Allergies Allergy/AdvReac Type Severity Reaction Status Date / Time No Known Allergies Allergy Verified 07/31/25 21:46 Review of Systems Review of Systems: Yes all other systems are reviewed and are negative Constitutional: Constitutional: Denies fatigue and Denies fever(s) Cardiovascular: Cardiovascular: Denies chest pain and Reports dyspnea Respiratory: Respiratory: Denies chest congestion, Reports cough, Reports dyspnea and Reports wheezing Gastrointestinal: Gastrointestinal: Denies abdominal pain and Denies nausea Endocrine: Endocrine: Denies fatigue Allergic/Immunologic: Allergic/Immunologic: Reports wheezing PMFSH Past Medical History Attestation statement: The following information was validated with the patient. Medical History (Updated 08/01/25 @ 05:34 by PATIENCE Pitts) Insomnia Asthma Anxiety Fatigue Polyarthralgia Hypertension GERD (gastroesophageal reflux disease) Surgical History (Updated 05/19/25 @ 11:06 by Esperanza Brooks CMA) Hx of tubal ligation S/P breast augmentation Hx laparoscopic cholecystectomy Family History Family History Father Hypertension Hyperlipidemia Maternal Grandmother Diabetes Cataract Glaucoma Melanoma Paternal Grandmother Myocardial infarction Family/Other No problems noted. Brother Diabetes Glaucoma Mother Fibromyalgia Maternal Aunt Rheumatoid arthritis Social History Social History Household Members: Children Alcohol intake: unknown Patient Tobacco Use Status: Never used Tobacco Smoked in Last 30 Days: Yes Use of substances other than those prescribed or required for medical reasons: No Substance Use Type: Marijuana Advance Directives: No Advance Directives Information Provided: Yes Current occupational status: employed Current [place]: [place] [place] Physical Exam ED Vital Signs: Vital Signs - 24 hr 07/31/25 21:40 07/31/25 21:44 07/31/25 22:42 Temperature 97.9 F 97.9 F Pulse Rate 100 98 89 Respiratory Rate 18 22 H 16 Blood Pressure 132/87 132/87 Pulse Oximetry 100 100 Oxygen Delivery Method Room Air Aerosol Mask Oxygen Flow Rate 07/31/25 23:20 07/31/25 23:34 07/31/25 23:49 Temperature Pulse Rate 118 H Respiratory Rate 16 Blood Pressure Pulse Oximetry 92 92 89 L Oxygen Delivery Method Room Air Room Air Oxygen Flow Rate 08/01/25 00:08 08/01/25 00:51 08/01/25 00:53 Temperature Pulse Rate 103 H 131 H Respiratory Rate 14 20 Blood Pressure 151/98 H Pulse Oximetry 91 L 95 Oxygen Delivery Method Room Air Nasal Cannula Oxygen Flow Rate 2 08/01/25 02:15 08/01/25 02:55 08/01/25 03:14 Temperature Pulse Rate 113 H 100 Respiratory Rate 20 20 Blood Pressure Pulse Oximetry 91 L 95 Oxygen Delivery Method Room Air Nasal Cannula Oxygen Flow Rate 2 BMI result Body Mass Index 30.5 Const Other: Alert well-appearing Orientation/consciousness: patient oriented x3 Resp Other: Diffuse expiratory wheezes posterior martin, somewhat tachypneic Cardio Other: Normal peripheral perfusion Skin Other: Warm dry no rash Neuro General: patient oriented x3, gait normal, no focal motor deficits and CN's II-XI intact bilaterally Psych Other: Cooperative Medications Administered Generic Name Dose Route Start Last Admin Trade Name Clarissa PRN Reason Stop Dose Admin Sodium Chloride 1,000 mls @ 999 mls/hr 08/01/25 04:45 08/01/25 05:08 Ns IV 08/01/25 05:45 999 mls/hr .Q1H1M HOWARD Administration Discontinued Medications Generic Name Dose Route Start Last Admin Trade Name Clarissa PRN Reason Stop Dose Admin Albuterol Sulfate 2.5 mg/ 0 mg 07/31/25 22:35 07/31/25 22:42 Albuterol/Ipratropium 3 ml INHALE 07/31/25 22:36 2 dose ONCE ONE Administration Albuterol Sulfate 2.5 mg/ 0 mg 08/01/25 00:03 08/01/25 00:07 Albuterol/Ipratropium 3 ml INHALE 08/01/25 00:04 2 dose ONCE ONE Administration Albuterol Sulfate 2.5 mg/ 0 mg 08/01/25 03:08 08/01/25 03:12 Albuterol/Ipratropium 3 ml INHALE 08/01/25 03:09 2 dose ONCE ONE Administration Magnesium Sulfate 2 gm in 50 mls @ 150 mls/hr 07/31/25 21:44 07/31/25 22:21 Magnesium Sulfate/H2o IV 07/31/25 22:03 Infused ONCE ONE Infusion Acetaminophen 1,000 mg in 100 mls @ 400 mls/hr 08/01/25 02:54 08/01/25 04:10 Ofirmev IV 08/01/25 03:08 Infused ONCE ONE Infusion Ketorolac Tromethamine 15 mg 08/01/25 02:54 08/01/25 03:15 Ketorolac Tromethamine 15 Mg/Ml Vial IVPUSH 08/01/25 02:55 15 mg ONCE ONE Administration Methylprednisolone Sodium Succinate 60 mg 07/31/25 21:44 07/31/25 21:56 Methylprednisolone Sod Succ 125 Mg/2 Ml Vial IVPUSH 07/31/25 21:45 60 mg ONCE ONE Administration Ondansetron HCl 4 mg 07/31/25 22:30 07/31/25 22:34 Ondansetron Hcl 4 Mg/2 Ml Vial IVPUSH 07/31/25 22:31 4 mg ONCE ONE Administration Medical Decision Making Medical Decision Making MDM Narrative: 44-year-old female with a history of asthma, polyarthralgia who is LARRY positive, anxiety and hypertension who presents with cough and cold symptoms times 1 day. Patient states she developed her symptoms this morning, her wheezing has worsened, she is not responding to home nebulizer treatment. Denies fever or sick contacts with viral symptoms. Patient denies use of tobacco, however uses marijuana. Problem: Asthma History: Per patient I have considered the following differential diagnoses: Viral syndrome, asthma exacerbation, bronchitis, pneumonia Plan: We will add on a viral panel and a chest x-ray, the patient is here with active asthma exacerbation, could be viral induced. We will give Solu-Medrol and magnesium. I have independently reviewed the following tests: Labs: Slight leukocytosis left shift noted, not anemic, no electrolyte abnormality, viral panel negative Chest x-ray:Findings: No consolidation or effusion. Heart size is normal. No acute fracture. IMPRESSION: 1. No acute findings. Differential Diagnosis Differential Diagnoses: The differential diagnosis associated with the presentation includes See [facility] Admission/Observation Consideration of admission/observation: Escalation of care including admission/observation considered Not applicable Lab Data [facility] Lab Attestation statement: I reviewed the patient's lab results. 07/31/25 21:50 07/31/25 21:50 Labs: Lab Results 07/31/25 Range/Units 21:50 WBC 12.1 H (4.8-10.8) X10*3/uL RBC 4.96 (4.20-5.50) X10*6/uL Hgb 12.7 (12.0-16.0) g/dl Hct 39.3 (37.0-47.0) % MCV 79.2 L (80.0-98.0) fL MCH 25.6 L (27.0-33.0) pg MCHC 32.3 (31.0-35.0) g/dl RDW 16.5 H (11.0-16.0) % Plt Count 372 (160-400) X10*3/uL MPV 10.7 (9.4-12.3) fL Immature Gran % (Auto) 0.3 (0.0-0.4) % Neut % (Auto) 93.1 H (45-73) % Lymph % (Auto) 4.5 L (20-40) % [place] % (Auto) 1.5 L (2-11) % Eos % (Auto) 0.3 (0-4) % Baso % (Auto) 0.3 (0-2) % Lymph # (Auto) 0.6 L (1.2-4.9) X10*3/uL [place] # (Auto) 0.2 (0.1-1.2) X10*3/uL Eos # (Auto) 0.0 (0.0-0.4) X10*3/uL Baso # (Auto) 0.0 (0.0-0.2) X10*3/uL Abs Immat Gran (auto) 0.04 H (0.00-0.03) X10*3/uL Absolute Neuts (auto) 11.3 H (2.0-8.3) x10*3/uL Absolute Nucleated RBC 0.000 (0.0-0.012) X10*3/uL Nucleated RBC % (auto) 0.0 (0.0-0.2) /100WBC Smear Tech's Comments VERIFIED Hold Blue Top SEE NOTE Sodium 140 (135-145) mmol/L Potassium 3.4 (3.3-5.1) mmol/L Chloride 108 (96-108) mmol/L Carbon Dioxide 26 (22-29) mmol/L Anion Gap 9 L (12-20) BUN 8 L (9-16) mg/dL Creatinine 0.70 (0.5-1.4) mg/dL Estim Creat Clear Calc 103.5 Estimated GFR > 60 Random Glucose 124 H (60-115) mg/dL Calcium 8.5 D (8.4-10.2) mg/dL Magnesium 1.8 (1.6-2.6) mg/dL Influenza Type A (PCR) NEGATIVE (Negative) Influenza Type B (PCR) NEGATIVE (Negative) RSV RNA Qual (PCR) NEGATIVE (Negative) SARS-CoV-2 RNA (RT-PCR) NEGATIVE (Negative) Radiology Impression Discussion of test interpretation with radiology: I have reviewed the radiologist's reading. Discharge Plan Discharge Clinical Impression: Asthma exacerbation, Viral infection Patient Disposition: Home, Self-Care Instructions: Asthma (ED), Viral Syndrome (ED) Additional Instructions: All of your screening labs including a viral panel were normal, you were screened for influenza COVID and RSV. The chest x-ray did not reveal pneumonia. You are being treated for an asthma exacerbation, likely triggered by yet another respiratory virus has been circulating within the community. See home care instructions. Use your nebulizer as directed. Take the steroid as directed. Follow up with primary care as needed. Prescriptions: New prednisone 20 mg tablet 40 mg PO DAILY Qty: 8 0RF albuterol sulfate 2.5 mg /3 mL (0.083 %) solution for nebulization 2.5 mg inhalation Q4-6H PRN (Reason: shortness of breath or wheezing) Qty: 75 0RF No Action albuterol sulfate 90 mcg/actuation HFA aerosol inhaler 2 puff inhalation Q4H PRN (Reason: wheezing) cetirizine 10 mg tablet 10 mg PO DAILY PRN hydroxyzine HCl 10 mg tablet 10 mg PO BEDTIME escitalopram oxalate [Lexapro] 20 mg tablet 20 mg PO DAILY omeprazole magnesium [Prilosec OTC] 20 mg tablet,delayed release (DR/EC) 20 mg PO DAILY Stand Alone Forms: Work/School Release Print Language: Indonesian
[2025-07-31 22:58] LABS: Resp Syncy Virus RNA Qual PCR NEGATIVE (Negative); SARS COV2 PCR INHOUSE NEGATIVE (Negative)
--- NOTE | 2025-07-31 23:51 | PC.NURSE ---
Report taken from Rebekah RN, assumed care of pt at this time. A&Ox3 skin pwd respirations even unlabored, audible wheezing noted. PA notified. Pt ambulatory to bathroom dsat to 89-91% on RA. 2L O2 via NC applied. Awaiting RT, aware of plan of care.
[2025-08-01] VITALS (7 sets, daily range): BP systolic 151; BP diastolic 98; PULSE 100–131; RESP 14–20; TEMP 36.1; O2SAT 91–96
[2025-08-01] MEDS: Albuterol Sulfate 2.5 MG, Albuterol/Iprat 2.5/0.5MG 3 ML 3 ML INHALE ×2 (00:07→03:12)
== END 2025-08-01 05:49 | disposition home or self-care (01) ==
PROVIDERS: Physician Assistant Medical; Emergency Provider Emergency Medicine; PCP Internal Medicine
DX: J45.901 Unspecified asthma with (acute) exacerbation (principal); B34.9 Viral infection, unspecified; I10 Essential (primary) hypertension
CPT/HCPCS: 71045; 80048; 83735; 85025; 87637; 94640; 96365; 96367; 96375; 99285; J0131; J1885; J2405; J2919; J3475

== ENCOUNTER → 2025-07-31 21:44 | Outpatient (BNV) | payer SELFPAY | PROVIDERS: Emergency Provider Emergency Medicine; PCP Internal Medicine; Visit Provider Student in an Organized Health Care Education/Training Program | DX: R05.9 Cough, unspecified (principal) | CPT/HCPCS: 71045 ==

== ENCOUNTER 2025-08-01 08:53 | Observation (INO) | payer SELFPAY ==
[2025-08-01] VITALS (12 sets, daily range): BP systolic 97–156; BP diastolic 55–89; PULSE 99–134; RESP 18–20; TEMP 36.5–36.8; O2SAT 93–99; BMI 32.5
--- NOTE | 2025-08-01 09:00 | ED_ITS ---
HPI - General Adult General Chief complaint: Asthma Stated complaint: ASTHMA EXACERBATION Time Seen by Provider: 08/01/25 09:00 Source: patient, EMS, RN notes reviewed and old records reviewed Mode of arrival: EMS Limitations: no limitations History of Present Illness ED Provider: CORINNE Holder HPI narrative: 44-year-old female with medical history of asthma, anxiety, HTN, polyarthralgia LARRY positive, presents to the ED due to wheezing and difficulty breathing. Patient was seen in the department last night was given IV magnesium, IV Solu- Medrol, and discharged with 4 day course of prednisone, and solution for DuoNeb machine at home. Patient states that when she got home this morning she tried to lay down to go to sleep but felt wheezy and SOB. Patient States she tried doing a duoneb treatment without effect and called ambulance to come back to the department. Denies fevers, chest pain, abdominal pain, vomiting, diarrhea, urinary symptoms. MD complaint: Wheezing, SOB Related Data Home Medications ?Medication ?Instructions ?Recorded ?Confirmed albuterol sulfate 90 mcg/actuation 2 puff inhalation Q 4H PRN wheezing 07/28/22 08/01/25 aerosol inhaler cetirizine 10 mg tablet 10 mg PO DAILY PRN Allergy S ymptoms 08/05/22 08/01/25 escitalopram oxalate 20 mg tablet 20 mg PO DAILY 05/1908/01/25 (Lexapro) hydroxyzine HCl 10 mg tablet 10 mg PO BEDTIME PRN Anxi ety 05/19/25 08/01/25 cyanocobalamin (vitamin B-12) 1,000 mcg PO DAILY 08/0108/01/25 1,000 mcg tablet losartan 25 mg tablet 25 mg PO DAILY 08/01/2510/25 omeprazole 40 mg capsule,delayed 40 mg PO DAILY@0630 1 10/02/24 08/01/25 release Previous Rx's ?Medication ?Instructions ?Recorded albuterol sulfate 2.5 mg/3 mL 2.5 mg (3 mL) inhalation Q4-6H PRN 08/01/25 (0.083 %) solution for nebulization shortness of breat h or wheezing #75 mL budesonide-formoterol HFA 160 1 puff inhalation BID #1 0.2 grams 12/04/25 mcg-4.5 mcg/actuation aerosol inhaler (Symbicort) methylprednisolone 4 mg tablets in 4 mg PO DAILY #21 e a 08/03/25 a dose pack (Medrol (Johan)) Allergies Allergy/AdvReac Type Severity Reaction Status Date / Time Seasonal Allergies Allergy Runny Nose Verified 08/01/25 09:04 Review of Systems 2 Review of Systems: Yes all other systems are reviewed and are negative PMFSH Past Medical History Attestation statement: The following information was validated with the patient. Source: old records reviewed and nursing notes reviewed Medical History Insomnia Asthma Anxiety Fatigue Polyarthralgia Hypertension GERD (gastroesophageal reflux disease) Surgical History Hx of tubal ligation S/P breast augmentation Hx laparoscopic cholecystectomy Family History Family History Father Hypertension Hyperlipidemia Maternal Grandmother Diabetes Cataract Glaucoma Melanoma Paternal Grandmother Myocardial infarction Family/Other No problems noted. Brother Diabetes Glaucoma Mother Fibromyalgia Maternal Aunt Rheumatoid arthritis Social History Social History Household Members: Children Alcohol intake: unknown Patient Tobacco Use Status: Never used Tobacco Substance Use Type: Marijuana service: No Current occupational status: employed Current [place] [place] Exam ED Vital Signs: Vital Signs - 24 hr 08/01/25 09:00 08/01/25 09:14 08/01/25 10:23 Temperature 97.7 F 97.8 F Pulse Rate 134 H 121 H 114 H Respiratory Rate 18 20 20 Blood Pressure 156/89 H 104/55 L Pulse Oximetry 95 96 Oxygen Delivery Method Room Air Room Air 08/01/25 11:54 Temperature Pulse Rate Respiratory Rate Blood Pressure Pulse Oximetry 93 Oxygen Delivery Method BMI result Body Mass Index 32.5 GENERAL APPEARANCE: ?AxOx4, generally well-appearing, no acute distress. HEENT: ?NC, AT. MMM. EOMI, clear conjunctiva, oropharynx clear. NECK: ?Supple without lymphadenopathy.? No stiffness or restricted ROM. HEART:? Tachycardic rate and regular rhythm, normal S1/S2, no m/r/g LUNGS:? Diminished breath sounds throughout all lung martin, moderate expiratory wheeze, no increased work of breathing, no accessory muscle use ABDOMEN: ?Soft, nontender, nondistended with good bowel sounds heard. BACK: No CVAT, no obvious deformity. EXTREMITIES: ?Without cyanosis, clubbing or edema. NEUROLOGICAL: ?Grossly nonfocal. Alert and oriented, moving all 4 extremities. Skin: ?Warm and dry without any rash. Medications Administered Discontinued Medications Generic Name Dose Route Start Last Admin Trade Name Freq PRN Reason Stop Dose Admin Acetaminophen 650 mg 08/01/25 13:02 08/03/25 08:43 Acetaminophen 325 Mg Tablet PO 650 mg Q6H PRN Administration Pain, Mild 1-3,fever,headache Albuterol Sulfate 5 mg/ 7.5 mg 08/01/25 09:03 08/01/25 09:13 Albuterol Sulfate 2.5 mg INHALE 08/01/25 09:04 7.5 mg ONCE ONE Administration Albuterol/Ipratropium 3 ml 08/01/25 13:02 08/03/25 06:03 Albuterol/Iprat 2.5/0.5mg 3 Ml Ampul.Neb INHALE 3 ml Q4H PRN Administration Shortness of Breath/Wheezing Cyanocobalamin 1,000 mcg 08/02/25 09:00 08/03/25 08:37 Cyanocobalamin (Vitamin B-12) 1,000 Mcg Tablet PO 1,000 mcg DAILY HOWARD Administration Enoxaparin Sodium 40 mg 08/01/25 13:15 08/03/25 11:28 Enoxaparin Sodium 40 Mg/0.4 Ml Syringe SUBCUT 40 mg Q24H HOWARD Administration Escitalopram Oxalate 20 mg 08/02/25 09:00 08/03/25 08:37 Escitalopram Oxalate 20 Mg Tablet PO 20 mg DAILY HOWARD Administration Lactated Ringer's 1,000 mls @ 999 mls/hr 08/01/25 11:46 08/01/25 15:16 Lr IV 08/01/25 12:46 Infused .Q1H1M ONE Infusion Levalbuterol HCl 1.25 mg 08/01/25 12:00 08/03/25 15:25 Levalbuterol Hcl 1.25 Mg/3 Ml Vial.Neb INHALE 1.25 mg RQ4H WHILE AWAKE HOWARD Administration Losartan Potassium 25 mg 08/02/25 09:00 08/03/25 08:37 Losartan Potassium 25 Mg Tablet PO 25 mg DAILY HOWARD Administration Protocol Methylprednisolone Sodium Succinate 60 mg 08/01/25 09:04 08/01/25 09:20 Methylprednisolone Sod Succ 125 Mg/2 Ml Vial IVPUSH 08/01/25 09:05 60 mg ONCE ONE Administration Methylprednisolone Sodium Succinate 40 mg 08/01/25 21:00 08/02/25 09:34 Methylprednisolone Sod Succ 40 Mg/Ml Vial IVPUSH 40 mg Q12H HOWARD Administration Methylprednisolone Sodium Succinate 40 mg 08/02/25 17:00 08/02/25 19:17 Methylprednisolone Sod Succ 40 Mg/Ml Vial IVPUSH Not Given Q8H HOWARD Methylprednisolone Sodium Succinate 40 mg 08/02/25 20:00 08/03/25 11:28 Methylprednisolone Sod Succ 40 Mg/Ml Vial IVPUSH 40 mg Q8H HOWARD Administration Omeprazole 40 mg 08/02/25 06:30 08/03/25 06:15 Omeprazole 40 Mg Capsule. PO 40 mg DAILY@0630 HOWARD Administration Ondansetron HCl 4 mg 08/01/25 09:07 08/01/25 09:20 Ondansetron Hcl 4 Mg/2 Ml Vial IVPUSH 08/01/25 09:08 4 mg ONCE ONE Administration Sodium Chloride 3 ml 08/01/25 16:00 08/03/25 08:38 0.9 % Sodium Chloride Flush 3 Ml Syringe IVFLUSH 3 ml QSHIFT HOWARD Administration Medical Decision Making Medical Decision Making MDM Narrative: 44-year-old female with medical history of asthma, anxiety, HTN, polyarthralgia LARRY positive, presents to the ED due to wheezing and difficulty breathing. Patient was seen in the department last night was given IV magnesium, IV Solu- Medrol, and discharged with 4 day course of prednisone, and solution for DuoNeb machine at home. Patient states that when she got home this morning she tried to lay down to go to sleep but felt wheezy and SOB. Patient States she tried doing a duoneb treatment without effect and called ambulance to come back to the department. VS on initial observation-BP 156/89, pulse rate of 134, respiratory rate of 18, afebrile with oral temp of 97.7?, O2 saturation 95% on room air. On physical exam diminished breath sounds throughout all lung martin, with moderate expiratory wheeze, no increased work of breathing, no accessory muscle use, no pursed lip breathing, cardiac exam reveals a tachycardic rate, normal rhythm, without murmurs/rubs/gallops, abdomen is soft, nontender, nondistended, no rigidity. Labs reveal leukocytosis of 11.2 with left shift of 97.2, H and H stable, no electrolyte abnormalities. VBG with HC03 of 20, no other derangements. CXR reviewed from last night was WNL. Patient with significant wheeze, SOB, was seen in the department last night was medicated with magnesium, IV sterioids and discharged with prednisone and solution for DuoNeb with persistent wheeze and SOB. While ambulating, patient becomes hypoxic at 93%. I reached out to Hospitalist GRAVITY MANAGER Lisbeth Paz who will admit to medicine for asthma exacerbation. Differential Diagnosis Differential Diagnoses: The differential diagnosis associated with the presentation includes Asthma exacerbation Viral illness COVID Flu RSV Pneumonia Admission/Observation Consideration of admission/observation: Escalation of care including admission/observation considered Consult Healthcare Provider Management of the patient was discussed with: Hospitalist (Lisbeth Paz ) Lab Data [facility] Lab Attestation statement: I reviewed the patient's lab results. 08/01/25 09:38 08/01/25 09:38 Labs: Lab Results 08/01/25 08/01/25 Range/Units 09:38 09:43 WBC 11.2 H (4.8-10.8) X10*3/uL RBC 4.95 (4.20-5.50) X10*6/uL Hgb 12.7 (12.0-16.0) g/dl Hct 39.3 (37.0-47.0) % MCV 79.4 L (80.0-98.0) fL MCH 25.7 L (27.0-33.0) pg MCHC 32.3 (31.0-35.0) g/dl RDW 17.0 H (11.0-16.0) % Plt Count 335 (160-400) X10*3/uL MPV 10.6 (9.4-12.3) fL Immature Gran % (Auto) 0.4 (0.0-0.4) % Neut % (Auto) 92.7 H (45-73) % Lymph % (Auto) 4.7 L (20-40) % [place] % (Auto) 2.1 (2-11) % Eos % (Auto) 0.0 (0-4) % Baso % (Auto) 0.1 (0-2) % Lymph # (Auto) 0.5 L (1.2-4.9) X10*3/uL [place] # (Auto) 0.2 (0.1-1.2) X10*3/uL Eos # (Auto) 0.0 (0.0-0.4) X10*3/uL Baso # (Auto) 0.0 (0.0-0.2) X10*3/uL Abs Immat Gran (auto) 0.05 H (0.00-0.03) X10*3/uL Absolute Neuts (auto) 10.4 H (2.0-8.3) x10*3/uL Absolute Nucleated RBC 0.000 (0.0-0.012) X10*3/uL Nucleated RBC % (auto) 0.0 (0.0-0.2) /100WBC Smear Tech's Comments VERIFIED Hold Blue Top SEE NOTE VBG pH 7.39 (7.32-7.43) VBG pCO2 32 mmHg VBG pO2 84 mmHg VBG HCO3 20 L (22-26) mmol/L VBG O2 Saturation 97.0 % VBG Base Excess -3.7 mmol/L Sodium 141 (135-145) mmol/L Potassium 4.5 D (3.3-5.1) mmol/L Chloride 111 H (96-108) mmol/L Carbon Dioxide 21 L (22-29) mmol/L Anion Gap 14 (12-20) BUN 7 L (9-16) mg/dL Creatinine 0.63 (0.5-1.4) mg/dL Estim Creat Clear Calc 114.4 Estimated GFR > 60 Random Glucose 163 H (60-115) mg/dL Calcium 8.6 (8.4-10.2) mg/dL Magnesium 2.4 (1.6-2.6) mg/dL Total Bilirubin 0.4 (0.0-1.0) mg/dL AST 28 (5-31) U/L ALT 11 (0-31) U/L Alkaline Phosphatase 76 (39-117) U/L Total Protein 7.9 (6.5-8.0) g/dL Albumin 4.3 (3.5-5.0) g/dL Independent Interpretation I performed an independent interpretation of an: Plain X-Ray Interpretation: I personally interpreted the CXR that was done last night, at 10:00 p.m. which was negative for infiltrates, consolidations, I agree with the radiologist's interpretation Radiology Impression Discussion of test interpretation with radiology: I have reviewed the radiologist's reading. Radiologist Impression: CXR Findings: No consolidation or effusion. Heart size is normal. No acute fracture. IMPRESSION: 1. No acute findings. This document has been electronically signed by: Sherif Lora MD on 07/31/2025 22:32:03 Dictated By: Sherif Lora MD Signed By: <Electronically signed by Sherif Lora MD in OV> 07/31/25 [id number] External Record Review External record reviewed: Inpatient record, Office record, Outpatient record and Prior outpatient labs Chronic Conditions Patient?s care impacted by: Hypertension and Other (Asthma, polyarthralgia LARRY positive) Critical Care Time Critical Care Time Critical Care Time: Yes Total Critical Care Time: 39 Attestation: I have personally provided 39 minutes of critical care time exclusive of time spent on separately billable procedures for patient with asthma exacerbation requiring frequent reassessments of airway, breathing treatments, IV steroid, and consult with hospitalist for admission for management. Time includes review of lab data, radiology results, discussion with consultants, and monitoring for potential decompensation. Intervention performed as documented. Discharge Plan Discharge Clinical Impression: Asthma exacerbation Patient Disposition: Admitted As Inpatient Interventions: Admission Worksheet (ED) Last Done: 08/02/25 07:55 Discharge Date/Time: 08/02/25 09:05
[2025-08-01] MEDS: Albuterol Sulfate 5 MG, Albuterol Sulfate (0.083%) 2.5 MG 7.5 MG INHALE (09:13)
--- OUTSIDE RECORDS SUMMARY | 2025-08-01 09:46 | XMS_ITS | Clinical Summary ---
Author Organization [facility] [address] [place] [address] Address [address] [place] [address] Phone Care Team Providers Care Assembly Loader Name Role Phone Wei Rasmussen MD Primary Care Provider Allergies No known active allergies Medications cetirizine [...] 11:00 AM EDT Office Visit Adult Medicine [address] [phone] Kacey Kirby PA Mild intermittent asthma without complication (Primary Dx); Essential hypertension; Anxiety and depression; Gastroesophageal reflux disease without esophagitis 06/26/2025 Telephone Adult Medicine [address] [phone] Wei Rasmussen MD from Last [...] IMPLANT BREAST SILICONE/EQ OTHER SURGICAL HISTORY PROCEDURE: [place] LAPS SURG CHOLECYSTECTOMY W/CHOLANGIOGRAPHY; COMMENT: 05/25/2014 Medical [...] for your loved ones. For example, child protective services social worker or elderly care for an older adult? [...] mmol/L LAB CHEMISTRY METHOD 12/08/2024 2:38 PM [facility] Potassium 3.9 3.5 - 5.5 mmol/L LAB CHEMISTRY METHOD 12/08/2024 2:38 PM [facility] Chloride 103 96 - 110 mmol/L LAB CHEMISTRY METHOD 12/08/2024 2:38 PM [facility] CO2 28 21 - 32 mmol/L LAB CHEMISTRY METHOD 12/08/2024 2:38 PM [facility] Anion Gap 7 3 - 11 LAB CHEMISTRY METHOD 12/08/2024 2:38 PM [facility] Glucose 75 70 - 100 mg/dL LAB CHEMISTRY METHOD 12/08/2024 2:38 PM [facility] BUN 9 5 - 25 mg/dL LAB CHEMISTRY METHOD 12/08/2024 2:38 PM [facility] Creatinine 0.82 0.50 - 1.10 mg/dL LAB CHEMISTRY METHOD 12/08/2024 2:38 PM [facility] eGFR 92 >=60 mL/min/1. 73m2 LAB CHEMISTRY METHOD 12/08/2024 2:38 PM [facility] Comment:Calculation based on the Chronic Kidney Disease Epidemiology Collaboration (CKD-EPI) equation refit without adjustment for race. BUN/Creatinine Ratio 11.0 LAB CHEMISTRY METHOD 12/08/2024 2:38 PM [facility] Calcium 9.4 8.5 - 10.5 mg/dL LAB CHEMISTRY METHOD 12/08/2024 2:38 PM [facility] AST (SGOT) 14 10 - 42 unit/L LAB CHEMISTRY METHOD 12/08/2024 2:38 PM [facility] ALT (SGPT) 13 10 - 60 unit/L LAB CHEMISTRY METHOD 12/08/2024 2:38 PM [facility] Alkaline Phosphatase 99 42 - 121 unit/L LAB CHEMISTRY METHOD 12/08/2024 2:38 PM [facility] Total Protein 8.1(H) 6.0 - 8.0 g/dL LAB CHEMISTRY METHOD 12/08/2024 2:38 PM [facility] Albumin 3.8 3.2 - 5.0 g/dL LAB CHEMISTRY METHOD 12/08/2024 2:38 PM [facility] Total Bilirubin 0.8 0.0 - 1.4 mg/dL LAB CHEMISTRY METHOD 12/08/2024 2:38 PM [facility] Blood Venous blood specimen / Unknown Venipuncture / Unknown 12/08/2024 11:14 AM EDT 12/08/2024 11:14 AM EDT us Kacey MORIN LAB BLOOD ORDERABLES Fin al Result [facility] [address] [place] [address], [place] [phone] * Depression Screening (05/17/2024) Pathologist [facility] Depression Screening Abstracted Result [facility] Historical Provider HEALTH MAINTENANCE Final Result * (ABNORMAL) Lipid panel (02/01/2024) [facility] LDL/HDL Ratio 4 0 - 4 Triglycerides 115 0 - 150 mg/dL Cholesterol 196 0 - 200 mg/dL HDL 56 >=40 mg/dL LDL Cholesterol 117(A) 0 - 100 mg/dL Blood Venous blood specimen / Unknown Result [facility] Provider LAB BLOOD ORDERABLES Carolina l Result * Pap Smear (08/20/2017) [facility] Pap smear Negative, Abstracted Result [facility] Historical Provider HEALTH MAINTENANCE Final Result * HIV Screening (09/01/2014) [facility] HIV Screening Abstracted Result [facility] Provider HEALTH MAINTENANCE Final Result * Hepatitis C Screening (09/01/2014) [facility] Hepatitis C Screening Abstracted Result [facility] Provider HEALTH MAINTENANCE Final Result from Last 3 Months or Most Recently Relevant to Health Maintenance Insurance [employer] Care Teams Assembly Loader Relationship Specialty Start Date End Date Wei Rasmussen MD [address] [place] [phone] PCP - General 07/17/22
--- OUTSIDE RECORDS SUMMARY | 2025-08-01 09:46 | XMS_ITS | Encounter Summary ---
Author Organization [facility] Address [address] [address] Phone Care Team Providers Care Medical Van Driver Name Role Phone Pcp, Unknown Primary Care Provider Unavailabl e Encounter Details Date Type Department Care Team (Late st Contact Info) Description 09/18/2023 Procedure Pass OR Admitting Dept - Virtual Department [address] [place] [address] Social History Tobacco Use Types Packs/Day Years [...] on filedocumented in this encounter Care Teams Medical Van Driver Relationship Specialty Start Date End Date Pcp, Unknown PCP - General 11/17/22 documented as of this encounter Additional Source Comments The information contained in this document represents components of the legal health record. It is not the complete legal health record.[facility]
--- OUTSIDE RECORDS SUMMARY | 2025-08-01 09:46 | XMS_ITS | Clinical Summary ---
Author Organization [facility] Address [address] [address] Phone Care Team Providers Care Power Generation Technician Name Role Phone Pcp, Unknown Primary Care [...] this topic Medical Devices Implanted Type Area Disability Benefits Specialist Device Identifier Shelf Expiration Date Model / Serial / Lot Breast Breast Procedures Procedure Name Priority Date/Time Associated Diagnosis Comments PAP TEST Routine 07/21/2023 12:00 AM EST from Last 3 Months or Most Recently Relevant to Health Maintenance Results * Pap Test (07/21/2023 12:00 AM EST) 07/21/2023 07/22/2023 9:1 5 AM EST Narrative SEE NARRATIVE - 07/29/2023 8:56 [place] [address] Community Health Representative: Andra Garland MD MACHINE CLOTHING MAN Cytology Report FINAL DIAGNOSIS A. PAP SMEAR [...] 59, 66, 68) Note: Testing performed by [employer] HR-HPV analysis. Clinical correlation is advised. This HPV test was performed at , [address] [place] [address]. This test has been FDA approved for [employer] cervical cytology specimens. The accuracy and precision of this test for all other specimen sources has been verified in the Cytopathology Laboratory of the and has not been cleared or approved by the U.S. Food and Drug Administration. Clinical correlation is advised. CLINICAL HISTORY Date of Last Menstrual Period: Not Provided Menstrual History: Unknown Contraceptive History: BCPs Other Clinical Conditions: Screening Pap SPECIMEN SOURCE A: PAP SMEAR (SUREPATH) CE Patient Name: ROMMEL YOO : 1980 (Age: 42) Sex: F Institution[facility] Location: [facility] Date of Collection: 07/21/2023 Date of Reported: 07/29/2023 08:56 Results to: Amy Beauchamp CNM Amy Beauchamp CNM CYTOLOGY ORDERABLES Carolina aurelia Result SEE NARRATIVE from Last 3 Months or Most Recently Relevant to Health Maintenance Insurance [facility] PUBLIC PLANS [facility] [employer] DIRECT [employer] DIRECT [employer] DIRECT [place] [address] [employer] DIRECT Advance Directives For more information, please contact: [phone] (9AM - 5PM [facility], Thursday-Thursday) * Full Code (Latest Code Status on File) Date Activated Date Inactivated Comments 09/18/2023 6:48 AM Question Answer Comments Code Status Confirmed With: Patient Care Teams Power Generation Technician Relationship Specialty Start Date End Date Pcp, Unknown PCP - General 11/17/22 Additional Source Comments The information contained in this document represents components of the legal health record. It is not the complete legal health record.[facility]
[2025-08-01 09:47] LABS: VBG HCO3 20 mmol/L (22-26); VBG O2 % Saturation 97.0 %
[2025-08-01 09:48] LABS: Venous Blood Gas Refer to POC result
[2025-08-01 09:50] LABS: Hematocrit 39.3 % (37.0-47.0); Hemoglobin 12.7 g/dl (12.0-16.0); Imm Gran Abs Auto 0.05 X10*3/uL (0.00-0.03); Imm Gran Pct Auto 0.4 % (0.0-0.4); Lymphocytes Absolute Auto 0.5 X10*3/uL (1.2-4.9); MANUAL DIFF FLAG SCAN; Mean Corpuscular HGB Conc 32.3 g/dl (31.0-35.0); Mean Corpuscular Hemoglobin 25.7 pg (27.0-33.0); Mean Corpuscular Volume 79.4 fL (80.0-98.0); NRBC Abs Auto 0.000 X10*3/uL (0.0-0.012); NRBC Pct Auto 0.0 /100WBC (0.0-0.2); Platelet Count 335 X10*3/uL (160-400); Red Blood Count 4.95 X10*6/uL (4.20-5.50); SCAN SMEAR FLAG 1; White Blood Count 11.2 X10*3/uL (4.8-10.8)
[2025-08-01 10:03] LABS: Alanine Aminotransferase 11 U/L (0-31); Albumin Level 4.3 g/dL (3.5-5.0); Alkaline Phosphatase 76 U/L (39-117); Anion Gap 14 (12-20); Aspartate Amino Transferase 28 U/L (5-31); Blood Urea Nitrogen 7 mg/dL (9-16); Calcium 8.6 mg/dL (8.4-10.2); Carbon Dioxide 21 mmol/L (22-29); Chloride 111 mmol/L (96-108); Creatinine Clr Calc Pharmacy 114.4; Estimated Glomerular Filt Rate > 60; Magnesium 2.4 mg/dL (1.6-2.6); Potassium 4.5 mmol/L (3.3-5.1); Sodium 141 mmol/L (135-145); Total Protein 7.9 g/dL (6.5-8.0)
--- NOTE | 2025-08-01 10:26 | PC.NURSE ---
patient reports some improvements w/ breathing after treatments both prior to arrival and upon arrival. states she feels she can finally take a deep breath. continues to have wheezing. aware of plan to potentially admit patient. hr has decreased to 110-115's while at rest. states her tremors and anxiety from treatments have also improved. patient resting quietly in room w/ no distress noted. call burden within reach.
[2025-08-01] MEDS: Lactated Ringers 1,000 ML 999 ML IV (11:55)
--- NOTE | 2025-08-01 11:57 | P.HPHOSP_ITS ---
[facility] Medical History Insomnia Asthma Anxiety Fatigue Polyarthralgia Hypertension GERD (gastroesophageal reflux disease) Family History Father Hypertension Hyperlipidemia Maternal Grandmother Diabetes Cataract Glaucoma Melanoma Paternal Grandmother Myocardial infarction Family/Other No problems noted. Brother Diabetes Glaucoma Mother Fibromyalgia Maternal Aunt Rheumatoid arthritis Surgical History Hx of tubal ligation S/P breast augmentation Hx laparoscopic cholecystectomy Social History Household Members: Children Alcohol intake: unknown Patient Tobacco Use Status: Never used Tobacco Substance Use Type: Marijuana Advance Directives: No Advance Directives Information Provided: Yes Current occupational status: employed Current occupation: [employer] Meds Allergies Allergy/AdvReac Type Severity Reaction Status Date / Time Seasonal Allergies Allergy Runny Nose Verified 08/01/25 09:04 Active Medications: Current Medications Lactated Ringer's (Lr) 1,000 mls @ 999 mls/hr IV .Q1H1M ONE Stop: 08/01/25 12:46 Last Admin: 08/01/25 11:55 Dose: 999 mls/hr Home Medications ?Medication ?Instructions ?Recorded ?Confirmed ?Last Taken ?Type albuterol sulfate 90 mcg/actuation 2 puff inhalation Q 4H PRN wheezing 07/28/22 Unknown History aerosol inhaler cetirizine 10 mg tablet 10 mg PO DAILY PRN 08/05/22 Unknown History escitalopram oxalate 20 mg tablet 20 mg PO DAILY 05/19 Unknown History (Lexapro) hydroxyzine HCl 10 mg tablet 10 mg PO BEDTIME 05/19/25 Unknown History omeprazole magnesium 20 mg 20 mg PO DAILY 05/19/25 Un known History tablet,delayed release (Prilosec OTC) Physical Exam 2 Vital Signs and Narrative: Vital Signs: Last Vital Signs Temp 97.8 F 08/01/25 10:23 Pulse 114 H 08/01/25 10:23 Resp 20 08/01/25 10:23 BP 104/55 L 08/01/25 10:23 Pulse Ox 93 08/01/25 11:54 O2 Del Method Room Air 08/01/25 10:23 BMI result Body Mass Index 32.5 Results Labs 08/01/25 09:38 08/01/25 09:38 Labs: Laboratory Results - last 24 hr 08/01/25 08/01/25 09:38 09:43 MCV 79.4 L MCH 25.7 L MCHC 32.3 RDW 17.0 H Plt Count 335 MPV 10.6 Immature Gran % (Auto) 0.4 Neut % (Auto) 92.7 H Lymph % (Auto) 4.7 L [place] % (Auto) 2.1 Eos % (Auto) 0.0 Baso % (Auto) 0.1 Lymph # (Auto) 0.5 L [place] # (Auto) 0.2 Eos # (Auto) 0.0 Baso # (Auto) 0.0 Abs Immat Gran (auto) 0.05 H Absolute Neuts (auto) 10.4 H Absolute Nucleated RBC 0.000 Nucleated RBC % (auto) 0.0 Hold Blue Top SEE NOTE VBG pH 7.39 VBG pCO2 32 VBG pO2 84 VBG HCO3 20 L VBG O2 Saturation 97.0 VBG Base Excess -3.7 Anion Gap 14 Estim Creat Clear Calc 114.4 Estimated GFR > 60 Random Glucose 163 H Calcium 8.6 Magnesium 2.4 Total Bilirubin 0.4 AST 28 ALT 11 Alkaline Phosphatase 76 Total Protein 7.9 Albumin 4.3
--- NOTE | 2025-08-01 12:56 | P.HPHOSP_ITS ---
History of Present Illness Date of Service: 08/01/25 Chief Complaint: SOB, wheezing A 44-year-old female presents with recurrent shortness of breath and wheezing. She was evaluated in the ED last night for similar symptoms and discharged early this morning with prednisone and DuoNeb solution. After returning home and attempting to sleep, she developed worsening wheezing and was unable to control symptoms with home treatments, prompting her return to the ED. Today, labs show WBC 11.2 with marked left shift (92.7%), stable hemoglobin and hematocrit, and normal electrolytes. VBG notable for HCO? 20 without other acid?base abnormalities. Chest X-ray from last night was normal. Patient continues to report SOB and wheezing at rest. No fever, chest pain, or recent sick contacts. Review of Systems 2 Review of Systems: No fever, chills or weakness No chest pain, palpitation reporting shortness of breath or coughing No abdominal pain, nausea or vomiting No urinary symptoms No any rash or wounds [facility] Medical History Insomnia Asthma Anxiety Fatigue Polyarthralgia Hypertension GERD (gastroesophageal reflux disease) Family History Father Hypertension Hyperlipidemia Maternal Grandmother Diabetes Cataract Glaucoma Melanoma Paternal Grandmother Myocardial infarction Family/Other No problems noted. Brother Diabetes Glaucoma Mother Fibromyalgia Maternal Aunt Rheumatoid arthritis Surgical History Hx of tubal ligation S/P breast augmentation Hx laparoscopic cholecystectomy Social History Household Members: Children Alcohol intake: unknown Patient Tobacco Use Status: Never used Tobacco Substance Use Type: Marijuana Advance Directives: No Advance Directives Information Provided: Yes Current occupational status: employed Current occupation: [place] [employer] Meds Allergies Allergy/AdvReac Type Severity Reaction Status Date / Time Seasonal Allergies Allergy Runny Nose Verified 08/01/25 09:04 Active Medications: Current Medications Levalbuterol HCl (Levalbuterol Hcl 1.25 Mg/3 Ml Vial.Neb) 1.25 mg INHALE RQ4H WHILE AWAKE ANITA Last Admin: 08/01/25 12:24 Dose: 1.25 mg Methylprednisolone Sodium Succinate (Methylprednisolone Sod Succ 40 Mg/Ml Vial) 40 mg IVPUSH Q12H ANITA Home Medications ?Medication ?Instructions ?Recorded ?Confirmed ?Last Taken ?Type albuterol sulfate 90 mcg/actuation 2 puff inhalation Q 4H PRN wheezing 07/28/22 08/01/25 Unknown History aerosol inhaler cetirizine 10 mg tablet 10 mg PO DAILY PRN Allergy S ymptoms 08/05/22 08/01/25 Unknown History escitalopram oxalate 20 mg tablet 20 mg PO DAILY 05/1908/01/25 07/31/25 History (Lexapro) hydroxyzine HCl 10 mg tablet 10 mg PO BEDTIME PRN Anxi ety 05/19/25 08/01/25 Unknown History cyanocobalamin (vitamin B-12) 1,000 mcg PO DAILY 08/0108/01/25 07/31/25 History 1,000 mcg tablet losartan 25 mg tablet 25 mg PO DAILY 08/01/25 1210/2507/31/25 History omeprazole 40 mg capsule,delayed 40 mg PO DAILY@0630 1 10/02/24 08/01/25 07/31/25 History release Physical Exam 2 Vital Signs and Narrative: Vital Signs: Last Vital Signs Temp 97.8 F 08/01/25 10:23 Pulse 112 H 08/01/25 12:33 Resp 18 08/01/25 12:33 BP 123/73 08/01/25 12:33 Pulse Ox 95 08/01/25 12:33 O2 Del Method Room Air 08/01/25 12:33 BMI result Body Mass Index 32.5 Const: Other: Constitutional : Awake, interactive, in distress Neck : Normal inspection, Supple Cardiovascular : RRR, no JVP, no lower extremity edema Respiratory : fair bilateral air entry, no crackles, bilateral expiratory wheezes , in moderate respiratory distress using accessory muscles Gastrointestinal: soft, lax, Normal bowel sounds, Non tender Skin : Warm, Dry Neurological : Alert & oriented x3, No focal deficit Results Labs 08/01/25 09:38 08/01/25 09:38 Labs: Laboratory Results - last 24 hr 08/01/25 08/01/25 09:38 09:43 MCV 79.4 L MCH 25.7 L MCHC 32.3 RDW 17.0 H Plt Count 335 MPV 10.6 Immature Gran % (Auto) 0.4 Neut % (Auto) 92.7 H Lymph % (Auto) 4.7 L [place] % (Auto) 2.1 Eos % (Auto) 0.0 Baso % (Auto) 0.1 Lymph # (Auto) 0.5 L [place] # (Auto) 0.2 Eos # (Auto) 0.0 Baso # (Auto) 0.0 Abs Immat Gran (auto) 0.05 H Absolute Neuts (auto) 10.4 H Absolute Nucleated RBC 0.000 Nucleated RBC % (auto) 0.0 Smear Tech's Comments VERIFIED Hold Blue Top SEE NOTE VBG pH 7.39 VBG pCO2 32 VBG pO2 84 VBG HCO3 20 L VBG O2 Saturation 97.0 VBG Base Excess -3.7 Anion Gap 14 Estim Creat Clear Calc 114.4 Estimated GFR > 60 Random Glucose 163 H Calcium 8.6 Magnesium 2.4 Total Bilirubin 0.4 AST 28 ALT 11 Alkaline Phosphatase 76 Total Protein 7.9 Albumin 4.3 Assessment and Plan (1) Asthma exacerbation: Status: Acute Plan A 44-year-old female presents with recurrent shortness of breath and wheezing. She was evaluated in the ED last night for similar symptoms and discharged early this morning with prednisone and DuoNeb solution. After returning home and attempting to sleep, she developed worsening wheezing and was unable to control symptoms with home treatments, prompting her return to the ED. Acute persistent asthma with exacerbation likely from URI , failed outpatient therapy CXR no abnormalities reported Start steroids IV and taper down to PO in 1-2 days Bronchodilator therapy Anita and PRN (Xopenex) given tachycardia Continue home inhaler; switch to Symbicort on discharge as maintenance and PRN GERD PPI HTN Losartan Mood disorder Escitalopram, Atarax DVT PPx Lovenox Pending Med rec. Quality Stroke Does the patient have a stroke diagnosis?: No VTE Prior VTE?: No VTE Risk Level:: Medical - moderate - high VTE Device Contraindication: Treatment Not Indicated VTE Drug Contraindication: N/A - Med Ordered
--- NOTE | 2025-08-01 13:59 | PHA.MEDREC ---
Addendum entered by Naif Castro jose luis 08/01/25 14:08: med rec reviewed Original Note: Pharmacy Consult ? Medication Reconciliation Pharmacy has completed the medication reconciliation. Spoke with pt and she confirmed her medications. Pt not taking Pulmicort due to not liking that inhaler, she started taking a Prednisone 20mg regiment this morning (after being Dc's this Am from our facility); pt states she had some from a previous regimen she never finished and took 1 this morning.
[2025-08-01] MEDS: 0.9 % Sodium Chloride Flush 3 ML SYRINGE IVFLUSH (17:29)
[2025-08-02] VITALS (12 sets, daily range): BP systolic 112–140; BP diastolic 65–82; PULSE 79–117; RESP 14–19; TEMP 36–36.7; O2SAT 93–96
[2025-08-02] MEDS: Albuterol/Iprat 2.5/0.5MG 3 ML AMPUL.NEB INHALE (01:11)
--- NOTE | 2025-08-02 09:57 | MHC.CM.PN ---
pt is indepedent will not need services dc plan home n/s
--- NOTE | 2025-08-02 12:32 | P.PNIM_ITS ---
Subjective Subjective Date of Service: 08/02/25 Interval History: Patient seen examined at bedside this morning, patient mentions that her breathing has improved, however persists with cough and wheezing. Review of Systems Review of Systems: Yes all other systems are reviewed and are negative Physical Exam 2 Exam: Exam: General: AxOx3, short of breath on xozs-ol-pnqftwed exertion Head: AT/NC ENT: Moist mucous membranes Neck: supple CVS; RRR, S1 S2 normal Lungs: Coarse bilateral breath sounds, wheezing and rales Abd: Soft non tender, non distended Ext: No edema and no calf tenderness MSK: moving all 4 limbs Skin: No cyanosis or edema Psych: Cooperative with exam Neurology: no focal deficit Vital Signs: Vital Signs: Last Vital Signs Temp 98.0 F 08/02/25 04:00 Pulse 117 H 08/02/25 11:56 Resp 18 08/02/25 11:56 BP 116/78 08/02/25 04:00 Pulse Ox 95 08/02/25 04:00 O2 Del Method Room Air 08/02/25 04:00 BMI result Body Mass Index 32.5 Objective Data Active Medications Acetaminophen (Acetaminophen 325 Mg Tablet) 650 mg PO Q6H PRN PRN Reason: Pain, Mild 1-3,fever,headache Last Admin: 08/02/25 01:29 Dose: 650 mg Documented By: VALDO Albuterol/Ipratropium (Albuterol/Iprat 2.5/0.5mg 3 Ml Ampul.Neb) 3 ml INHALE Q4H PRN PRN Reason: Shortness of Breath/Wheezing Last Admin: 08/02/25 01:11 Dose: 3 ml Documented By: KORY Calcium Carbonate (Calcium Carbonate 750 Mg Tab.Chew) 750 mg PO Q4H PRN PRN Reason: Heartburn Cyanocobalamin (Cyanocobalamin (Vitamin B-12) 1,000 Mcg Tablet) 1,000 mcg PO DAILY [facility] Last Admin: 08/02/25 09:34 Dose: 1,000 mcg Documented By: SHELBY Enoxaparin Sodium (Enoxaparin Sodium 40 Mg/0.4 Ml Syringe) 40 mg SUBCUT Q24H [facility] Last Admin: 08/02/25 11:31 Dose: 40 mg Documented By: SHELBY Escitalopram Oxalate (Escitalopram Oxalate 20 Mg Tablet) 20 mg PO DAILY [facility] Last Admin: 08/02/25 09:34 Dose: 20 mg Documented By: SHELBY Hydroxyzine HCl (Hydroxyzine Hcl 10 Mg Tablet) 10 mg PO BEDTIME PRN PRN Reason: Anxiety Levalbuterol HCl (Levalbuterol Hcl 1.25 Mg/3 Ml Vial.Neb) 1.25 mg INHALE RQ4H WHILE AWAKE [facility] Last Admin: 08/02/25 11:55 Dose: 1.25 mg Documented By: JOSSUE Loratadine (Loratadine 10 Mg Tablet) 10 mg PO DAILY PRN PRN Reason: Allergy Symptoms Losartan Potassium (Losartan Potassium 25 Mg Tablet) 25 mg PO DAILY [facility]; Protocol Last Admin: 08/02/25 09:34 Dose: 25 mg Documented By: SHELBY Magnesium Hydroxide (Milk Of Magnesia 30 Ml Oral.Susp) 30 ml PO DAILY PRN PRN Reason: Constipation Melatonin (Melatonin 3 Mg Tablet) 6 mg PO BEDTIME PRN PRN Reason: Insomnia Methylprednisolone Sodium Succinate (Methylprednisolone Sod Succ 40 Mg/Ml Vial) 40 mg IVPUSH Q8H [facility] Omeprazole (Omeprazole 40 Mg Capsule.Dr) 40 mg PO DAILY@0630 [facility] Last Admin: 08/02/25 06:13 Dose: 40 mg Documented By: VALDO Ondansetron HCl (Ondansetron Hcl 4 Mg/2 Ml Vial) 4 mg IVPUSH Q8H PRN PRN Reason: Nausea and Vomiting Sodium Chloride (0.9 % Sodium Chloride Flush 3 Ml Syringe) 3 ml IVFLUSH QSHIFT [facility] Last Admin: 08/02/25 08:56 Dose: Not Given Documented By: SHELBY Non-Admin Reason: in ed Labs 08/01/25 09:38 08/01/25 09:38 Assessment and Plan (1) Asthma exacerbation: Status: Acute Plan 44-year-old female presents with recurrent shortness of breath and wheezing. She was evaluated in the ED last night for similar symptoms and discharged early this morning with prednisone and DuoNeb solution. After returning home and attempting to sleep, she developed worsening wheezing and was unable to control symptoms with home treatments, prompting her return to the ED. Acute persistent asthma with exacerbation likely from URI , failed outpatient therapy CXR no abnormalities reported Increase solumedrol to q8hrs Bronchodilator therapy Anita and PRN (Xopenex) given tachycardia Continue home inhaler; switch to Symbicort on discharge as maintenance and PRN will order flutter valve and IS GERD PPI HTN, chronic Continue Losartan, monitor and adjust medication accordingly Mood disorder Escitalopram, Atarax DVT PPx Lovenox Disposition: All questions and concerns with the patient were answered to satisfaction. ?All pertinent clinical documents, images and labs were reviewed. ? DISCLAIMER: This document was created using voice recognition software. ?Any mistakes in the prescription are unintentional. ?An attempt was made to focus for accuracy, but to expedite availability, some errors may persist. ?Please contact with any need for correction or further clarification Total time managing care of this patient today: 35 minutes. Quality Stroke Does the patient have a stroke diagnosis?: No VTE Prior VTE?: No VTE Risk Level:: Medical - moderate - high VTE Device Contraindication: Treatment Not Indicated VTE Drug Contraindication: N/A - Med Ordered
[2025-08-02] MEDS: 0.9 % Sodium Chloride Flush 3 ML SYRINGE IVFLUSH (19:18)
[2025-08-03] MEDS: 0.9 % Sodium Chloride Flush 3 ML SYRINGE IVFLUSH ×2 (00:15→08:38)
[2025-08-03 03:41] VITALS: BP 132/90; PULSE 70; RESP 14; TEMP 36; O2SAT 96
[2025-08-03] MEDS: Albuterol/Iprat 2.5/0.5MG 3 ML AMPUL.NEB INHALE (06:03)
[2025-08-03 06:04] VITALS: PULSE 78; RESP 18; O2SAT 94
[2025-08-03 08:11] VITALS: PULSE 104; RESP 18; O2SAT 94
[2025-08-03 08:26] VITALS: BP 124/79; PULSE 96; RESP 18; TEMP 37; O2SAT 95
--- NOTE | 2025-08-03 13:20 | PM.DS ---
DS: Providers Provider Date of Service: 08/03/25 Date of admission: 08/01/25 11:57 Date of discharge: 08/03/25 Primary care physician: Wei Rasmussen MD DS: Diagnosis Discharge Diagnosis (1) Asthma exacerbation: Status: Acute DS: Summary Hospital Course Hospital Course: 44-year-old female presents with recurrent shortness of breath and wheezing. She was evaluated in the ED last night for similar symptoms and discharged early this morning with prednisone and DuoNeb solution. After returning home and attempting to sleep, she developed worsening wheezing and was unable to control symptoms with home treatments, prompting her return to the ED. Patient improved with bronchodilators as well as steroids. Patient mentions that she is feeling well with improved breathing. Acute persistent asthma with exacerbation, improved likely from URI , failed outpatient therapy CXR no abnormalities reported S/p solumedrol. will transition to Medrol dose johan. Continue with Symbicort on discharge as maintenance, continue PRN albuterol. follow up with PCP Continue incentive spirometer GERD PPI HTN, chronic Continue Losartan, monitor and adjust medication accordingly Mood disorder Escitalopram, Atarax Time Attestation Discharge Coordination Time (in mins): 35 minutes Quality: Safe Use of Opioids Does Pt have an Active Cancer Diagnosis on the Problem List?: No Quality: Stroke Does the patient have a stroke diagnosis?: No Physical Exam Exam: Exam: General: AxOx3, No acute distress Head: AT/NC ENT: Moist mucous membranes Neck: supple CVS; RRR, S1 S2 normal Lungs: mild wheezing Abd: Soft non tender, non distended Ext: No edema and no calf tenderness MSK: moving all 4 limbs Skin: No cyanosis or edema Psych: Cooperative with exam Neurology: no focal deficit Vital Signs: Vital Signs: Last Vital Signs Temp 98.6 F 08/03/25 08:26 Pulse 96 08/03/25 08:26 Resp 18 08/03/25 08:26 BP 124/79 08/03/25 08:26 Pulse Ox 95 08/03/25 08:26 O2 Del Method Room Air 08/03/25 08:26 BMI result Body Mass Index 32.5 Discharge Plan Discharge Patient Disposition: Home, Self-Care Discharge Diagnosis: Asthma exacerbation Referrals: Wei Rasmussen MD [Primary Care Provider, Internal Medicine] - 1 Week Discharge Medications: New budesonide-formoterol [Symbicort] 160-4.5 mcg/actuation HFA aerosol inhaler 1 puff inhalation BID Qty: 10.2 0RF methylprednisolone [Medrol (Johan)] 4 mg tablets,dose pack 4 mg PO DAILY Qty: 21 0RF Continued albuterol sulfate 2.5 mg /3 mL (0.083 %) solution for nebulization 2.5 mg inhalation Q4-6H PRN (Reason: shortness of breath or wheezing) Qty: 75 0RF cyanocobalamin (vitamin B-12) 1,000 mcg tablet 1,000 mcg PO DAILY losartan 25 mg tablet 25 mg PO DAILY omeprazole 40 mg capsule,delayed release(DR/EC) 40 mg PO DAILY@0630 albuterol sulfate 90 mcg/actuation HFA aerosol inhaler 2 puff inhalation Q4H PRN (Reason: wheezing) cetirizine 10 mg tablet 10 mg PO DAILY PRN (Reason: Allergy Symptoms) hydroxyzine HCl 10 mg tablet 10 mg PO BEDTIME PRN (Reason: Anxiety) escitalopram oxalate [Lexapro] 20 mg tablet 20 mg PO DAILY Discontinued prednisone 20 mg tablet 40 mg PO DAILY Qty: 8 0RF Discharge Orders: Discharge Order (Routine); Ordered 08/03/25 Ordered By: Frankie Goldsmith Activity on Discharge: As tolerated Stand Alone Forms: Patient Portal Discharge page Print Language: Ecuadorean Care Plan Goals: continue with inhalers and corticoids Health Concerns: asthma exacerbation Plan of Treatment: continue medrol dose johan Initiated Symbicort for outpatient, as needed albuterol continue incentive spirometer Assessment: 44-year-old female presents with recurrent shortness of breath and wheezing. She was evaluated in the ED last night for similar symptoms and discharged early this morning with prednisone and DuoNeb solution. After returning home and attempting to sleep, she developed worsening wheezing and was unable to control symptoms with home treatments, prompting her return to the ED. Patient improved with bronchodilators as well as steroids. Patient mentions that she is feeling well with improved breathing.
--- NOTE | 2025-08-03 14:50 | MHC.CM.PN ---
PT CLEARED TO DC HOME TODAY WITH NO SERVICES VIA PRIVATE TRANSPORT
--- NOTE | 2025-08-03 15:19 | MHC.CM.PN ---
A financial consult has been placed. Patient is listed as self pay.
[2025-08-03 15:22] VITALS: BP 146/92; PULSE 98; RESP 20; TEMP 37; O2SAT 94
[2025-08-03 15:26] VITALS: PULSE 89; RESP 15; O2SAT 98
== END 2025-08-03 16:10 | disposition home or self-care (01) ==
LOC: HO.ED 09:20 → HO.EDOVER 12:08 → HO.S3 08-02 07:17
PROVIDERS: Admitting Provider Student in an Organized Health Care Education/Training Program; Emergency Provider Emergency Medicine; PCP Internal Medicine; Visit Provider Student in an Organized Health Care Education/Training Program
DX: J45.901 Unspecified asthma with (acute) exacerbation (principal); K21.9 Gastro-esophageal reflux disease without esophagitis; I10 Essential (primary) hypertension; F39 Unspecified mood [affective] disorder; Z79.899 Other long term (current) drug therapy; Z79.51 Long term (current) use of inhaled steroids; F41.9 Anxiety disorder, unspecified
CPT/HCPCS: 36415; 80053; 82803; 83735; 85025; 94640; 96361; 96372; 96374; 96375; 96376; 99221; 99285; J1650; J2405; J2919; J7120

== ENCOUNTER → 2025-08-01 11:57 | Outpatient (BNV) | payer SELFPAY | PROVIDERS: Admitting Provider Student in an Organized Health Care Education/Training Program; Emergency Provider Emergency Medicine; PCP Internal Medicine; Visit Provider Student in an Organized Health Care Education/Training Program | DX: J45.901 Unspecified asthma with (acute) exacerbation (principal) | CPT/HCPCS: 99222; 99232; 99239 ==